=== PATIENT | female | born 1970 | race Caucasian/White ===

== ENCOUNTER 2023-05-25 09:44 | Outpatient (AMB) | payer MEDICAID, SELFPAY ==
--- NOTE | 2023-05-25 09:46 | A.OFFVIS_ITS ---
Intake Vital Signs 3 05/25/23 09:58 Height 5 ft 1 in Weight 193 lb BMI 36.5 BP 145/65 H Blood Pressure Location Lt brachial Position Sitting Pulse 86 Intake Visit Reasons: cutaneous abscess back excluding buttocks Intake Note: Patient is seen in office for evaluation and treatment of an abscess of the back. Patient c/o: had ump since 03/2023, however on 05/17/23 went to urgent care due to pain and was I&D started antbx at the time, had to go back to urgent care and was placed on a stronger antibiotics, currently is still discharge, redness, swelling, pain Coagulating Bath Mixer Required: Yes Coagulating Bath Mixer Language: Tank Car Loader Name: Rocio COBURN Information Interpreted: non-clinical & clinical Patcher Wood Welder: Patcher Wood Welder Present Accompanied by: Self / Same As Patient Allergies No Known Allergies Allergy (Verified 05/25/23 09:55) HPI HPI Comments 2 History of Present Illness0 Details 52-year-old female patient presenting wi th a one-month history of a sebaceous cyst abscess of the midback. Initially the cyst was asymptomatic however over the last week she noted increased pain and swelling. She subsequently was evaluated in the walk-in center and underwent incision and drainage. She continues to report pain and drainage from the site and was placed on a stronger antibiotic. She is currently on Bactrim ds b.i.d.. She continues to report pain and swelling from the site. She denies fever or chills. [facility] Surgical History History of left breast biopsy History of tubal ligation Family History Mother Ovarian cancer, Onset Age: 56 Sister Ovarian cancer, Onset Age: 48 Social History Unable to assess alcohol history related to: Unable to respond Patient Tobacco Use Status: Never used Tobacco Review of Systems Const All systems reviewed & are unremarkable except as noted in HPI and below Denies chills, Denies fever(s), Denies headache(s), Denies poor appetite and Denies weakness ENT Denies headache(s) Card Denies chest pain, Denies irregular heart rhythm, Denies palpitations and Denies dyspnea Resp Denies cough, Denies excessive phlegm production and Denies dyspnea GI Denies abdominal pain, Denies bloating, Denies change in bowel habits, Denies constipation, Denies heartburn, Denies diarrhea, Denies nausea and Denies vomiting Denies urinary frequency Musc Denies back pain, Denies muscle weakness and Denies numbness Skin/Breast Reports as per HPI, Denies changing lesions and Denies unusual bruising Neuro Denies headache(s), Denies numbness, Denies paresthesias and Denies weakness Psych Denies anxiety and Denies depression Endo Denies palpitations Torey/Lymph Denies lymphadenopathy Physical Exam Const General: cooperative and no acute distress Nutritional Appearance: well nourished Orientation/consciousness: patient oriented x3 Limitations: no limitations HEENT Head: Yes normocephalic and Yes atraumatic Ears: hearing grossly normal bilaterally Resp Effort & Inspection: normal respiratory effort, no audible wheezes, no cough and no respiratory distress Cardio Jugular venous distension: no JVD GI Inspection: Yes normal to inspection Back/Spine/Pelvis Other: 2 cm area of erythema with an incision and drainage site at the upper portion of the wound and a spontaneous draining punctum below this. Light pressure produces a steady stream of purulence discharge. Site may benefit from incision and drainage. Back/spine/pelvis image: 2 1. Abscess site midback Skin Other: Warm, dry, no rash Neuro General: patient oriented x3 Extrem General: Yes no clubbing, cyanosis or edema Office Procedures I&D Drain Details: Preoperative diagnosis: Sebaceous cyst abscess midback Postoperative diagnosis: Same Procedure: Incision and drainage sebaceous cyst abscess midback Surgeon: Seven Mathur MD Aircraft Seat Upholsterer: None Anesthesia: Lidocaine 1% with epinephrine Indications for procedure: Persistent draining cyst of mid back with abscess Operative findings: Sebaceous material and abscess fluid removed Specimen: None Estimated blood loss: None Complications: None Procedure details: Patient was placed in a prone position. The site of surgery was confirmed by the patient in the mid back. After assuring informed consent, the skin was prepped with Betadine and draped in a sterile fashion. Local anesthesia was infiltrated around the cyst. An 11 blade was used to incise the abscess. A small abscess cavity was entered. Sebaceous material was able to be removed using a hemostat. Wounds were then irrigated with saline solution. Wounds were then packed with quarter-inch Nu Gauze. Dry sterile dressings were applied. The patient tolerated the procedure well. She was discharged to home in stable condition. 45496-Dwludnic of Skin Abscess, simple All charges added?: Procedure code (CPT) selection complete Assessment & Plan Assessment & Plan (1) Sebaceous cyst: Code(s): L72.3 - Sebaceous cyst (2) Abscess: Code(s): L02.91 - Cutaneous abscess, unspecified Plan 52-year-old female patient presenting with a painful and draining sebaceous cyst of the midback previously incised and drained but continuing to cause pain. She was evaluated today and found to have residual abscess cavity. Incision and drainage was performed today. She tolerated the procedure well and was instructed on local wound care. She will return in 1 week for wound check. Coding Level of Care Code New Pt Level 3 (09491) Diagnoses Sebaceous cyst L72.3 Abscess L02.91 CPT Codes I&D Drain - Drain 1: 87057-Izoqblic of Skin Abscess, simple ([id number])
[2023-05-25 09:58] VITALS: BP 145/65; PULSE 86; BMI 36.5
== END 2023-05-25 10:13 | disposition home or self-care (01) ==
PROVIDERS: PCP Internal Medicine Geriatric Medicine; Referring Provider Internal Medicine Geriatric Medicine; Visit Provider Surgery
DX: L72.3 Sebaceous cyst (principal); L02.818 Cutaneous abscess of other sites
CPT/HCPCS: 10060; 99203

== ENCOUNTER → 2023-05-25 09:44 | Outpatient (BNVA) | payer MEDICAID, SELFPAY | PROVIDERS: PCP Internal Medicine Geriatric Medicine; Referring Provider Internal Medicine Geriatric Medicine; Visit Provider Surgery | DX: L02.212 Cutaneous abscess of back [any part, except buttock and flank] (principal); L72.3 Sebaceous cyst | CPT/HCPCS: 10060; 99202 ==

== ENCOUNTER 2023-06-01 11:14 | Outpatient (AMB) | payer MEDICAID, SELFPAY ==
--- NOTE | 2023-06-01 11:16 | MHC.OFFVIS ---
Intake Vital Signs 06/01/23 11:21 Height 5 ft 1 in Weight 194 lb 7.163 oz BMI 36.7 BP 130/70 Blood Pressure Location Lt brachial Position Sitting Intake Visit Reasons: post I&D of back abscess Intake Note: Patient is seen in office for one week follow up visit, post I&D of mid back abscess. Pt c/o: has been draining, every day is less, only painful at the site, slowly healing Pediatric Oncology Nurse Required: Yes Pediatric Oncology Nurse Language: Asset Protection Detective Name: Rocio RMA Information Interpreted: non-clinical & clinical Can Operator: Can Operator Present Accompanied by: Self / Same As Patient Allergies No Known Allergies Allergy (Verified 06/01/23 11:20) Medication List - Last Reconciled 06/01/23 by Seven Mathur MD No Known Home Meds HPI HPI Comments History of Present Illness Details Patient returns 1 week following incision and drainage of an abscess of the midback. She tolerated the procedure well and reports decreased pain and redness in the back. She continues to apply a dressing on a daily basis and notes a small amount of discharge, mainly bloody. She denies any fever or chills. [facility] Surgical History History of left breast biopsy History of tubal ligation Family History Mother Ovarian cancer, Onset Age: 56 Sister Ovarian cancer, Onset Age: 48 Social History Unable to assess alcohol history related to: Unable to respond Patient Tobacco Use Status: Never used Tobacco Physical Exam Vital Signs: Last Vital Signs BP 130/70 06/01/23 11:21 BMI result Body Mass Index 36.7 Const General: no acute distress Nutritional Appearance: well nourished Orientation/consciousness: patient oriented x3 Resp Effort & Inspection: normal respiratory effort Back/Spine/Pelvis Other: Incision and drainage site in the mid back is clean but open with a small amount of sebaceous material noted. Wounds were covered with dry sterile dressings. Neuro General: patient oriented x3 Assessment & Plan Assessment & Plan (1) Abscess: Code(s): L02.91 - Cutaneous abscess, unspecified (2) Sebaceous cyst: Code(s): L72.3 - Sebaceous cyst Plan Resolving sebaceous cyst abscess of the back which is much improved following incision and drainage. I recommended continuing daily dressing changes and follow-up in 1 month to decide if further excision is required. Coding Level of Care Code Global (92119) Diagnoses Abscess L02.91 Sebaceous cyst L72.3
[2023-06-01 11:21] VITALS: BP 130/70; BMI 36.7
== END 2023-06-01 11:26 | disposition home or self-care (01) ==
PROVIDERS: PCP Internal Medicine Geriatric Medicine; Visit Provider Surgery
DX: L02.91 Cutaneous abscess, unspecified (principal); L72.3 Sebaceous cyst
CPT/HCPCS: 99024

== ENCOUNTER → 2023-06-01 11:14 | Outpatient (BNVA) | payer MEDICAID, SELFPAY | PROVIDERS: PCP Internal Medicine Geriatric Medicine; Visit Provider Surgery | DX: Z48.817 Encounter for surgical aftercare following surgery on the skin and subcutaneous tissue (principal); L72.3 Sebaceous cyst | CPT/HCPCS: 99212 ==

== ENCOUNTER 2023-06-08 18:25 | Outpatient (REF) | payer MEDICAID, SELFPAY ==
[2023-06-10 14:33] LABS: C. trachomatis RNA TMA NOT DETECTED (NOT DETECTED); Candida glabrata RNA NOT DETECTED (NOT DETECTED); Candida species RNA NOT DETECTED (NOT DETECTED); N. gonorrhoeae RNA TMA NOT DETECTED (NOT DETECTED); Trichomonas vaginalis RNA NOT DETECTED (NOT DETECTED)
== END 2023-06-08 18:26 | disposition home or self-care (01) ==
LOC: HO.HHCLNP 18:25
PROVIDERS: Visit Provider Internal Medicine
DX: R39.9 Unspecified symptoms and signs involving the genitourinary system (principal)
CPT/HCPCS: 36415; 81513; 87086; 87481; 87491; 87591; 87661

== ENCOUNTER 2023-07-03 10:04 | Outpatient (AMB) | payer MEDICAID, SELFPAY ==
[2023-07-03 10:07] VITALS: BP 142/74; PULSE 73; BMI 36.8
--- NOTE | 2023-07-03 10:07 | MHC.OFFVIS ---
Intake Vital Signs 07/03/23 10:07 Height 5 ft 1 in Weight 195 lb BMI 36.8 BP 142/74 H Blood Pressure Location Rt brachial Position Sitting Pulse 73 Intake Visit Reasons: 1 mth follow up post I&D of back abscess Intake Note: This patient presents for a one month follow-up status post I&D back abscess. Patient c/o; reports has not been draining for 1 week, reports open wound. Appeals Court Associate Justice Required: Yes Appeals Court Associate Justice Language: Optical Glass Silverer Name: Sarah Information Interpreted: non-clinical & clinical Accompanied by: Self / Same As Patient Allergies No Known Allergies Allergy (Verified 07/03/23 10:13) Medication List - Last Reconciled 07/03/23 by Seven Mathur MD No Known Home Meds HPI HPI Comments History of Present Illness Details Patient returns 1 month following incision and drainage of an abscess of the midback. She denies any fever or chills. She feels much improved and denies any further drainage the wound. [facility] Surgical History History of left breast biopsy History of tubal ligation Family History Mother Ovarian cancer, Onset Age: 56 Sister Ovarian cancer, Onset Age: 48 Social History Unable to assess alcohol history related to: Unable to respond Patient Tobacco Use Status: Never used Tobacco Review of Systems Const All systems reviewed & are unremarkable except as noted in HPI and below Denies chills, Denies fever(s), Denies headache(s), Denies poor appetite and Denies weakness ENT Denies headache(s) Card Denies chest pain, Denies irregular heart rhythm, Denies palpitations and Denies dyspnea Resp Denies cough, Denies excessive phlegm production and Denies dyspnea GI Denies abdominal pain, Denies bloating, Denies change in bowel habits, Denies constipation, Denies heartburn, Denies diarrhea, Denies nausea and Denies vomiting Denies urinary frequency Musc Denies back pain, Denies muscle weakness and Denies numbness Skin/Breast Reports as per HPI, Denies changing lesions and Denies unusual bruising Neuro Denies headache(s), Denies numbness, Denies paresthesias and Denies weakness Psych Denies anxiety and Denies depression Endo Denies palpitations Torey/Lymph Denies lymphadenopathy Physical Exam Const General: no acute distress Nutritional Appearance: well nourished Orientation/consciousness: patient oriented x3 Resp Effort & Inspection: normal respiratory effort Back/Spine/Pelvis Other: wounds are clean, dry, with a slight separation in the skin but no evidence of ongoing infection. Neuro General: patient oriented x3 Assessment & Plan Assessment & Plan (1) Sebaceous cyst: Code(s): L72.3 - Sebaceous cyst (2) Abscess: Code(s): L02.91 - Cutaneous abscess, unspecified Plan The sebaceous cyst abscess is now resolved with no further infection noted. She should follow up as needed. Coding Level of Care Code Est Pt Level 3 (82243) Diagnoses Sebaceous cyst L72.3 Abscess L02.91
== END 2023-07-03 10:15 | disposition home or self-care (01) ==
PROVIDERS: PCP Internal Medicine Geriatric Medicine; Visit Provider Surgery
DX: L72.3 Sebaceous cyst (principal); L02.91 Cutaneous abscess, unspecified
CPT/HCPCS: 99213

== ENCOUNTER → 2023-07-03 10:04 | Outpatient (BNVA) | payer MEDICAID, SELFPAY | PROVIDERS: PCP Internal Medicine Geriatric Medicine; Visit Provider Surgery | DX: Z09 Encounter for follow-up examination after completed treatment for conditions other than malignant neoplasm (principal); Z87.2 Personal history of diseases of the skin and subcutaneous tissue | CPT/HCPCS: 99212 ==

== ENCOUNTER 2023-10-01 09:32 | Outpatient (REF) | payer MEDICAID, SELFPAY ==
[2023-10-01 11:40] LABS: Hematocrit 43.3 % (37.0-47.0); Hemoglobin 14.1 g/dl (12.0-16.0); Mean Corpuscular HGB Conc 32.6 g/dl (31.0-35.0); Mean Platelet Volume 9.2 fL (9.4-12.3); Platelet Count 300 X10*3/uL (160-400); Red Blood Count 5.22 X10*6/uL (4.20-5.50); Red Cell Distribution Width 12.9 % (11.0-16.0); White Blood Count 6.1 X10*3/uL (4.8-10.8)
[2023-10-01 11:47] LABS: Estimated Average Glucose 123 mg/dL; Hemoglobin A1c % 5.9 % (<6.0)
[2023-10-01 12:03] LABS: Alanine Aminotransferase 32 U/L (0-31); Albumin Level 4.1 g/dL (3.5-5.0); Alkaline Phosphatase 77 U/L (39-117); Anion Gap 11 (12-20); Aspartate Amino Transferase 22 U/L (5-31); Bilirubin Total 0.7 mg/dL (0.0-1.0); Blood Urea Nitrogen 13 mg/dL (9-16); Calcium 9.8 mg/dL (8.4-10.2); Carbon Dioxide 29 mmol/L (22-29); Chloride 105 mmol/L (96-108); Cholesterol 188 mg/dL (<200); Estimated Glomerular Filt Rate > 60; Glucose Random 105 mg/dL (60-115); HDL Cholesterol 63 mg/dL (>40); LDL Cholesterol Calculated 111 mg/dL (<100); Potassium 4.4 mmol/L (3.3-5.1); Sodium 141 mmol/L (135-145); Total Protein 7.6 g/dL (6.5-8.0); Triglycerides 74 mg/dL (<150)
[2023-10-01 12:18] LABS: TSH reflex Free T4 1.08 uIU/mL (0.32-4.0); Vitamin D 25-OH Total 38.8 ng/mL (>30)
[2023-10-01 12:28] LABS: Folate 9.7 ng/mL (> or = 4.0); Vitamin B12 694 pg/mL (200-900)
[2023-10-02 09:35] LABS: HBS Num1 13.19 mIU/mL (0-7.99); HBc Num1 0.09 S/CO (0.00-0.79); HBsAGNum1 0.24 S/CO (0.00-0.99); HIV AB/AG Nonreactive (Nonreactive); HIV Num 1 0.07 S/CO (0.00-0.99); Hepatitis B Core Antibody Nonreactive (Nonreactive); Hepatitis B Surface Antigen Negative (Negative); ~HepC Num1 0.07 S/CO (0.00-0.79); ~Hepatitis B Surface Antibody REACTIVE (Nonreactive); ~Hepatitis C Antibody Nonreactive (Nonreactive)
[2023-10-02 09:44] LABS: Syphilis Screen Nonreactive (Nonreactive)
== END 2023-10-01 09:33 | disposition home or self-care (01) ==
LOC: HO.HHCL 09:32
PROVIDERS: Visit Provider Student in an Organized Health Care Education/Training Program
DX: Z00.00 Encounter for general adult medical examination without abnormal findings (principal)
CPT/HCPCS: 36415; 80053; 80061; 82306; 82607; 82746; 83036; 84443; 85027; 86704; 86706; 86780; 86803; 87340; 87389

== ENCOUNTER 2023-11-13 13:03 | Outpatient (AMB) | payer MEDICAID, SELFPAY ==
[2023-11-13 13:05] VITALS: BP 135/75; PULSE 78; BMI 37.2
--- NOTE | 2023-11-13 13:05 | MHC.OFFVIS ---
Vital Signs 11/13/23 13:05 Height 5 ft 1 in Weight 196 lb 10.437 oz BMI 37.2 BP 135/75 Blood Pressure Location Lt brachial Position Sitting Pulse 78 Intake Visit Reasons: Colonoscopy Screening Intake Note: Patient in office today as a new patient for a colonoscopy screening. CC: Patient denies having any GI symptoms. Patient s/p hysterectomy last September. Regional Liaison Required: Yes Regional Liaison Name: daughter Accompanied by: Daughter Allergies No Known Allergies Allergy (Verified 11/13/23 13:05) HPI HPI Colonoscopy Screening: Details: 52-year-old female here for preprocedural meeting to discuss a screening colonoscopy. She is referred by [facility]. PMX Obesity -BMI 37 Bladder prolapse Uterine myoma History of sebaceous cyst * SURGICAL HISTORY Left breast biopsy Tubal ligation Hysterectomy * ALLERGIES : NKDA * [employer] LABS: Laboratory Tests 10/01/23 09:34 WBC 6.1 Hgb 14.1 Hct 43.3 Plt Count 300 Estimated GFR > 60 Total Bilirubin 0.7 AST 22 ALT 32 H Alkaline Phosphatase 77 TSH 1.08 TODAY'S VISIT [place] #dtr translates per pt request. The pt and her family says She does not know why she is here. She denies any bowel or upper GI problems. She denies any cardiac or respiratory problems. Initially she denies any trouble with anesthesia or sedation; but she was kept overnight recently after her hyst r/t somnolence. No ID problems. There is no known FHX of crc or polyps. [facility] Surgical History History of prolapse of bladder H/O total hysterectomy History of left breast biopsy History of tubal ligation Family History Mother Ovarian cancer, Onset Age: 56 Sister Ovarian cancer, Onset Age: 48 Social History Alcohol intake: former Patient Tobacco Use Status: Never used Tobacco Review of Systems Const Denies fatigue, Denies fever(s), Denies night sweats, Denies poor appetite and Denies weight loss ENT Reports Normal hearing present, Denies dental pain, Denies dysphagia, Denies hearing loss, Denies mouth pain, Denies odynophagia, Denies throat swelling, Denies tongue swelling and Reports other (Dentition adequate) Card Reports no additional complaints Resp Reports no additional complaints GI Details: Denies abdominal pain, Denies melena, Denies bloating, Denies hematochezia, Denies constipation, Denies GI cramping, Denies dysphagia, Denies excessive flatus, Denies early satiety, Denies heartburn, Denies diarrhea, Denies nausea, Denies odynophagia, Denies vomiting and Denies hematemesis Skin/Breast Denies pruritus, Denies lesions, Denies rash and Denies jaundice Neuro Reports Normal hearing present and Denies Abnormal speech present Endo Denies fatigue Aller/Immun Denies throat swelling and Denies tongue swelling Physical Exam Vital Signs: Last Vital Signs Pulse 78 11/13/23 13:05 BP 135/75 11/13/23 13:05 BMI result Body Mass Index 37.2 Const General: cooperative, no acute distress, well developed and well groomed Nutritional Appearance: well nourished and obese Orientation/consciousness: oriented to person, oriented to place and oriented to time Limitations: language barrier HEENT Head: Yes normocephalic and Yes atraumatic Eyes General: appearance normal, both eyes and all related structures Pupils: Equal, round and reactive pupils present Neck Neck: Yes normal visual inspection and Yes no lymphadenopathy Thyroid: Thyroid normal Resp Effort & Inspection: normal respiratory effort and able to speak in complete sentences Auscultation: clear to auscultation bilaterally Cardio Rate: regular rate Rhythm: regular rhythm Heart sounds: Normal, physiologic split S2 sound present Peripheral pulses: radial pulses present and posterior tibial pulses present GI Inspection: No distended, No Abdominal panniculus present, Yes obesity and Yes scar Palpation (GI): Soft to palpation, nontender, no guarding, not rigid and No hepatosplenomegaly present Percussion: Yes normal to percussion Auscultation: normal bowel sounds Rectal Exam - Female: deferred Abdomen image: 1. well healing recent surgical scars 2. 3. Skin General skin exam: no rashes or lesions noted, turgor normal, skin not dry, no jaundice, No spider nevi and no striae Rashes: no rashes Nails: normal Neuro General: oriented to person, oriented to place and oriented to time Cranial nerves: Yes Equal, round and reactive pupils present and Yes Normal hearing present Speech: No Abnormal speech present Extrem General: Yes normal to inspection, Yes no pedal edema, No clubbing, No cyanosis and Yes edema (very mild pitting on ankle left only) Psych Appearance: grossly normal and well kempt Mental Status: mental status grossly normal Speech and movement: Normal speech and movement present Affect: normal affect Attitude: cooperative Thought process: Normal thought process present and not confabulating Thought content: Normal thought content present Insight: Limited insight present (Psych) Judgement: Limited judgement present (Psych) Assessment & Plan Assessment & Plan (1) Pre-op examination: Code(s): Z01.818 - Encounter for other preprocedural examination Category: Medical Plan [place] #dtr translates per pt request. The pt and her family says She does not know why she is here. She denies any bowel or upper GI problems. She denies any cardiac or respiratory problems. Initially she denies any trouble with anesthesia or sedation; but she was kept overnight recently after her hyst r/t somnolence. No ID problems. There is no known FHX of crc or polyps. Orders: Orders Colonoscopy - GI Use Only 11/13/23 Z01.818 - Encounter for other preprocedural examination Medications: New bisacodyl (Dulcolax (bisacodyl)) 10 mg (2 x 5 mg) PO BEDTIME 4 tabs 0RF 2 days peg 3350-electrolytes 236-22.74-6.74 -5.86 gram (Golytely) until fecal effluent is clear; do not exceed a total volume of 2,000 mL 240 mL PO Q10M 4,000 mL 0RF 1 day Z12.11 - Encounter for screening for malignant neoplasm of colon Coding Level of Care Code New Pt Level 3 (46762) Diagnoses Pre-op examination Z01.818
== END 2023-11-13 13:50 | disposition home or self-care (01) ==
PROVIDERS: PCP Internal Medicine Geriatric Medicine; Visit Provider Nurse Practitioner
DX: Z01.818 Encounter for other preprocedural examination (principal)
CPT/HCPCS: 99203

== ENCOUNTER → 2023-11-13 13:03 | Outpatient (BNVA) | payer MEDICAID, SELFPAY | PROVIDERS: PCP Internal Medicine Geriatric Medicine; Visit Provider Nurse Practitioner | DX: Z01.818 Encounter for other preprocedural examination (principal) | CPT/HCPCS: 99202; 99212 ==

== ENCOUNTER → 2024-02-04 10:24 | Outpatient (BNVA) | payer MEDICAID, SELFPAY | PROVIDERS: PCP Internal Medicine Geriatric Medicine; Visit Provider Surgery | DX: T81.89XD Other complications of procedures, not elsewhere classified, subsequent encounter (principal); X58.XXXD Exposure to other specified factors, subsequent encounter; Z98.890 Other specified postprocedural states | CPT/HCPCS: 99211 ==

== ENCOUNTER 2024-02-21 09:48 | Outpatient (REF) | payer MEDICAID, SELFPAY | END 2024-02-21 09:49 | disposition home or self-care (01) | LOC: HO.LNP 09:48 | PROVIDERS: PCP Internal Medicine Geriatric Medicine; Visit Provider Surgery | DX: L72.0 Epidermal cyst (principal) | CPT/HCPCS: 11401; 88304; 99212 ==

== ENCOUNTER 2024-02-21 09:48 | Outpatient (AMB) | payer MEDICAID, SELFPAY ==
--- NOTE | 2024-02-21 09:53 | A.OFFVIS_ITS ---
Vital Signs 3 02/21/24 10:02 Height 5 ft 1 in Weight 196 lb 3.382 oz BMI 37.1 Pulse 76 Intake Visit Reasons: possible re-excision open I&D site (07/03/23) Intake Note: Patient is seen in office for possible re-excision of open I&D site of mid back abscess. Pt c/o: area is open since I&D and would like to have it surgically closed I& Geriatric Physician Required: No Accompanied by: Self / Same As Patient Allergies No Known Allergies Allergy (Verified 11/13/23 13:05) Medication List - Last Reconciled 02/21/24 by Seven Mathur MD bisacodyl (Dulcolax (bisacodyl)) 10 mg (2 x 5 mg) PO BEDTIME 2 days ibuprofen 800 mg PO BEDTIME PRN peg 3350-electrolytes 236-22.74-6.74 -5.86 gram (Golytely) 240 mL PO Q10M 1 day HPI Comments Details: 53-year-old female patient returns for re-evaluation of a sebaceous cyst of the midback. This was previously incised and drained on 05/25/2023. She denies any pain, redness or discharge from the site but does no a residual depression at the site of the previous cyst. She is requesting excision of this residual cyst to prevent further infections. [facility] Surgical History History of prolapse of bladder H/O total hysterectomy History of left breast biopsy History of tubal ligation Family History Mother Ovarian cancer, Onset Age: 56 Sister Ovarian cancer, Onset Age: 48 Social History Alcohol intake: former Patient Tobacco Use Status: Never used Tobacco Review of Systems Const All systems reviewed & are unremarkable except as noted in HPI and below Denies chills, Denies fever(s), Denies headache(s), Denies poor appetite and Denies weakness ENT Denies headache(s) Card Denies chest pain, Denies irregular heart rhythm, Denies palpitations and Denies dyspnea Resp Denies cough, Denies excessive phlegm production and Denies dyspnea GI Denies abdominal pain, Denies bloating, Denies change in bowel habits, Denies constipation, Denies heartburn, Denies diarrhea, Denies nausea and Denies vomiting Denies urinary frequency Musc Denies back pain, Denies muscle weakness and Denies numbness Skin/Breast Reports as per HPI, Denies changing lesions and Denies unusual bruising Neuro Denies headache(s), Denies numbness, Denies paresthesias and Denies weakness Psych Denies anxiety and Denies depression Endo Denies palpitations Torey/Lymph Denies lymphadenopathy Physical Exam Vital Signs: Last Vital Signs Pulse 76 02/21/24 10:02 BMI result Body Mass Index 37.1 Const General: no acute distress Nutritional Appearance: well nourished Orientation/consciousness: patient oriented x3 Resp Effort & Inspection: normal respiratory effort, no audible wheezes, no cough and no respiratory distress Back/Spine/Pelvis Back/spine/pelvis image: 2 1. 1 cm round cavity at the site of previous sebaceous cyst. The site is nontender to palpation with no evidence of fluctuance or other inflammatory changes. Cavities a proximally 1 cm deep Skin Other: Skin lesion as noted above Neuro General: patient oriented x3 Extrem Other: No edema Office Procedures Excision Details: Preoperative diagnosis: Sebaceous cyst midback Postoperative diagnosis: Same Procedure: Excision of sebaceous cyst midback Surgeon: Seven Mathur MD [employer] Dean: None Anesthesia: Lidocaine 1% with epinephrine Indications for procedure: Previous abscess midback with residual sebaceous cyst Operative findings: 1 cm sebaceous cyst Specimen: Sebaceous cyst midback Estimated blood loss: Less than 2 mL Complications: None Procedure details: The patient confirmed the site of procedure in the midback. After assuring informed consent, the patient was placed in a prone position. The skin was prepped with Betadine and draped in a sterile fashion. Local anesthesia was then infiltrated circumferentially around the cyst. Elliptical incision oriented longitudinally was then created with a 15 blade. This was carried out through subcutaneous tissue and around the cyst wall. The lesion was excised from the subcutaneous tissue and passed off the table. This was sent to pathology for further examination. After assuring adequate hemostasis the skin was closed using interrupted 3-0 nylon sutures. Sterile dressings consisting of 2 x 2 gauze and Tegaderm were then applied. The patient tolerated the procedure well and was discharged to home in stable condition. 57272-ijdsd/arms/legs 0.6-1cm Procedure code (CPT) selection complete Assessment & Plan Assessment & Plan (1) Sebaceous cyst: Code(s): L72.3 - Sebaceous cyst Category: Medical Plan Patient underwent excision of sebaceous cyst today under local anesthesia. She tolerated the procedure well and will return in approximately 1 week for suture removal. Orders: Orders 2 Surgical Today L72.3 - Sebaceous cyst Coding Level of Care Code Est Pt Level 4 (50741) Diagnoses Sebaceous cyst L72.3 CPT Codes Trunk/Arms/Legs - CPT: 75107-thlse/arms/legs 0.6-1cm ([id number])
[2024-02-21 10:02] VITALS: PULSE 76; BMI 37.1
== END 2024-02-21 10:19 | disposition home or self-care (01) ==
PROVIDERS: PCP Internal Medicine Geriatric Medicine; Visit Provider Surgery
DX: L72.3 Sebaceous cyst (principal)
CPT/HCPCS: 11401; 99214

== ENCOUNTER 2024-02-28 10:14 | Outpatient (AMB) | payer MEDICAID, SELFPAY ==
--- NOTE | 2024-02-28 10:15 | A.OFFVIS_ITS ---
Vital Signs 3 02/28/24 10:23 Height 5 ft 1 in Weight 196 lb 10.437 oz BMI 37.2 Pulse 72 Intake Visit Reasons: post exc betina cyst of the mid back (off proc) Intake Note: Patient is seen in office for suture removal post excision of mid back abscess. Pt c/o: denies any concerns, sutures removed at visit (off proc) Accompanied by: Self / Same As Patient Allergies No Known Allergies Allergy (Verified 02/28/24 10:24) HPI Comments Details: 53-year-old female patient returning 1 week following excision of an epidermal inclusion cyst of the back. She reports some itchiness but otherwise feels well. She denies any problems after the procedure. She returns today for suture removal. [facility] Surgical History History of prolapse of bladder H/O total hysterectomy History of left breast biopsy History of tubal ligation Family History Mother Ovarian cancer, Onset Age: 56 Sister Ovarian cancer, Onset Age: 48 Social History Alcohol intake: former Patient Tobacco Use Status: Never used Tobacco Physical Exam Vital Signs: Last Vital Signs Pulse 72 02/28/24 10:23 BMI result Body Mass Index 37.2 Const General: no acute distress Nutritional Appearance: well nourished Resp Effort & Inspection: normal respiratory effort Back/Spine/Pelvis Back/spine/pelvis image: 2 1. Midline incision in the mid back is clean, dry, and intact without redness or discharge. Sutures removed and Steri-Strips applied. Assessment & Plan Assessment & Plan (1) Sebaceous cyst: Code(s): L72.3 - Sebaceous cyst Category: Medical Plan 53-year-old female patient with a previous history of an infected sebaceous cyst of the midback now status post incision. She tolerated the procedure well the wounds are healing nicely. She should follow up as needed. Coding Level of Care Code Global (08148) Diagnoses Sebaceous cyst L72.3
[2024-02-28 10:23] VITALS: PULSE 72; BMI 37.2
== END 2024-02-28 10:41 | disposition home or self-care (01) ==
PROVIDERS: PCP Internal Medicine Geriatric Medicine; Visit Provider Surgery
DX: L72.3 Sebaceous cyst (principal)
CPT/HCPCS: 99024

== ENCOUNTER → 2024-02-28 10:14 | Outpatient (BNVA) | payer MEDICAID, SELFPAY | PROVIDERS: PCP Internal Medicine Geriatric Medicine; Visit Provider Surgery | DX: Z09 Encounter for follow-up examination after completed treatment for conditions other than malignant neoplasm (principal); Z87.2 Personal history of diseases of the skin and subcutaneous tissue | CPT/HCPCS: 99212 ==

== ENCOUNTER 2024-04-07 08:44 | Outpatient (REF) | payer MEDICAID, SELFPAY ==
[2024-04-07 12:06] LABS: Estimated Average Glucose 131 mg/dL; Hemoglobin A1C 150.4638 umol/L; Hemoglobin A1c % 6.2 % (<6.0); Total Hemoglobin (HGBA1C) 3417.0803 umol/L
[2024-04-07 12:16] LABS: Creatinine Urine 231.44 mg/dL; Microalbum/Creatinine Ratio Ur 3.4 ug/mg cr (<30)
[2024-04-07 12:17] LABS: Alanine Aminotransferase 39 U/L (0-31); Albumin Level 3.8 g/dL (3.5-5.0); Alkaline Phosphatase 86 U/L (39-117); Anion Gap 12 (12-20); Aspartate Amino Transferase 31 U/L (5-31); Bilirubin Total 0.7 mg/dL (0.0-1.0); Blood Urea Nitrogen 14 mg/dL (9-16); Calcium 9.3 mg/dL (8.4-10.2); Carbon Dioxide 26 mmol/L (22-29); Chloride 103 mmol/L (96-108); Cholesterol 173 mg/dL (<200); Estimated Glomerular Filt Rate > 60; Glucose Random 106 mg/dL (60-115); HDL Cholesterol 49 mg/dL (>40); LDL Cholesterol Calculated 106 mg/dL (<100); Potassium 3.7 mmol/L (3.3-5.1); Sodium 137 mmol/L (135-145); Total Protein 6.8 g/dL (6.5-8.0); Triglycerides 90 mg/dL (<150)
[2024-04-07 14:21] LABS: CT PCR NOT DETECTED (Not Detect.); NG PCR NOT DETECTED (Not Detect.)
== END 2024-04-07 08:45 | disposition home or self-care (01) ==
LOC: HO.HHCL 08:44
PROVIDERS: Visit Provider Student in an Organized Health Care Education/Training Program
DX: Z00.00 Encounter for general adult medical examination without abnormal findings (principal); R73.03 Prediabetes
CPT/HCPCS: 80053; 80061; 82043; 82570; 83036; 87491; 87591

== ENCOUNTER 2024-04-17 06:45 | Day surgery (SDC) | payer MEDICAID, SELFPAY ==
[2024-04-15 09:37] VITALS: BMI 37.0
--- NOTE | 2024-04-16 09:23 | P.CONAN_ITS ---
Documented by User: Federica King NP 04/16/24 09:24 HPI - Anesthesia Eval Consult details Narrative: 53yo F for Colonoscopy PMFSH Active Problems Active Problems: All Active Problems Pre-op examination (Acute) Uterine myoma (Acute) Bladder prolapse, female, acquired (Acute) Obesity (BMI 30-39.9) (Acute) Abscess (Acute) Past Medical History Medical History Hypertension Family History Family History Mother Ovarian cancer, Onset Age: 56 Sister Ovarian cancer, Onset Age: 48 Surgical History Surgical History History of prolapse of bladder H/O total hysterectomy History of left breast biopsy History of tubal ligation Social History Social History Are you a primary respiratory care instructor to a significant other at home: No Do you presently have visiting nurse or other home services: No Alcohol intake: former Patient Tobacco Use Status: Never used Tobacco Have you been hit, kicked, punched, or otherwise hurt by someone within the past year? If so, by whom?: No Are you DNR?: No Advance Directives: No Advance Directives Information Provided: Yes Recently lost weight without trying: No Nutrition Risks: No Nutritional Risk Meds Allergies Allergy/AdvReac Type Severity Reaction Status Date / Time No Known Allergies Allergy Verified 04/17/24 07:15 Home Medications ?Medication ?Instructions ?Recorded ?Confirmed ?Last Taken ?Type estradiol 0.05 mg/24 hr semiweekly 1 patch topical 2XW 04/17/24 04/17/24 Unknown History transdermal patch (Minivelle) losartan 25 mg tablet 25 mg PO DAILY 04/17/24 04/17/24 Unknown History Exam Height,Weight and Vital Signs: Height 5 ft 1 in Weight 88.904 kg Assessment and Plan Assessment Anesthesia Assessment: Chart Reviewed Documented by User: Yue Villa MD 04/17/24 07:48 PMFSH Past Medical History Medical History Hypertension Family History Family History Mother Ovarian cancer, Onset Age: 56 Sister Ovarian cancer, Onset Age: 48 Family history of problems with anesthesia: No Surgical History Surgical History History of prolapse of bladder H/O total hysterectomy History of left breast biopsy History of tubal ligation History of Problems with Anesthesia: No Social History Social History Are you a primary respiratory care instructor to a significant other at home: No Do you presently have visiting nurse or other home services: No Alcohol intake: former Patient Tobacco Use Status: Never used Tobacco Have you been hit, kicked, punched, or otherwise hurt by someone within the past year? If so, by whom?: No Are you DNR?: No Advance Directives: No Advance Directives Information Provided: Yes Recently lost weight without trying: No Nutrition Risks: No Nutritional Risk Meds Allergies Allergy/AdvReac Type Severity Reaction Status Date / Time No Known Allergies Allergy Verified 04/17/24 07:15 Home Medications ?Medication ?Instructions ?Recorded ?Confirmed ?Last Taken ?Type estradiol 0.05 mg/24 hr semiweekly 1 patch topical 2XW 04/17/24 04/17/24 Unknown History transdermal patch (Minivelle) losartan 25 mg tablet 25 mg PO DAILY 04/17/24 04/17/24 Unknown History Exam Airway Mallampati Class: II TM Dist: >3cm Neck ROM: Full Heart: rrr Lungs: cta Assessment and Plan Assessment Anesthesia Assessment: Anesthesia Plan Discussed Final Anesthetic Review Family History of Problems with Anesthesia: No History of Problems with Anesthesia: No NPO: Yes ASA Class: II Final Preanesthetic Review: No Changes in Pt Med Stat, Meds/Allgs Chart Reviewed, Consent Obtained/Reviewed and Anes Risks/Benef Reviewed Patient Risk: Low Procedure Risk: Low Anesthetic Plan Anesthetic Plan: MAC: Disposition: Standard PACU
[2024-04-17 06:58] VITALS: BMI 37.2
[2024-04-17] MEDS: Lactated Ringers 1,000 ML 100 ML IVCONT (07:06)
[2024-04-17 07:14] VITALS: BP 155/84; PULSE 88; RESP 18; TEMP 36.6; O2SAT 96
--- NOTE | 2024-04-17 08:13 | MHC.SHP ---
Pre-Procedural Eval Section A - 24 Hr Update-Section A only Date of Service: 04/17/24 Section B - Complete if H&P > 30 days Chief Complaint: Encounter for screening for malignant neoplasm of Present Medications: see Short Stay Collaborative assessment Medical History: No relevant PMH History of Previous Operations: Relevant previous surgery/procedure and date(s) (hysterectomy ) Allergies: Allergies Allergy/AdvReac Type Severity Reaction Status Date / Time No Known Allergies Allergy Verified 04/17/24 07:15 Review of Systems Review of Systems Comment: 10 point ROS negative Exam Exam Comment: Gen appear: No acute distress HEENT: no icterus Chest: No overt resp distress Abd: soft, nontender, nondistended Psych: Stable affect, answering questions appropriately Neuro: A/Ox3 noted to move all extremities spontaneously Ext: no peripheral edema Plan Diagnosis/Plan: Unchanged I have reviewed the history and physical and performed a pertinent physical examination on my patient. No changes have occurred unless specified. Time Spent With Patient Time: Total time managing care of this patient today ____ minutes.
--- NOTE | 2024-04-17 09:17 | P.OPN-COLO_ITS ---
Colonoscopy Operative Note Operative Note Date of Service: 04/17/24 Narrative: Procedure: Colonoscopy Indication: Screening Endoscopist: Estefany Thompson MD Anesthesia Provider: Susana Regan CRNA Anesthesia type: MAC Instrument: Olympus [id number]-[id number] Consent: Indication, risks vs benefits, and alternatives were discussed with the patient who gave written informed consent to proceed. An hourly sign language interpreter was utilized to assist with the consent. EKG, pulse, pulse oximetry and blood pressure were monitored throughout the procedure. Please see anesthesia flowsheet. Procedure: The patient was brought to the procedure room and placed in the left lateral decubitus position. IV medications were administered by the anesthesia provider in attendance. A digital rectal exam was performed which was abnormal due to finding of hemorrhoids. A distal attachment cap was affixed to the tip of the colonoscope which was then inserted through the anus and advanced through the colon to the cecum at 80 cm,and terminal ileum. Appendiceal orifice and ileocecal valve were identified. Mucosa was carefully examined under high definition white light as the instrument was slowly withdrawn in a retrograde panoramic fashion. Retroflexion was performed in rectum. The procedure was not difficult. There were no immediate obvious complications. The quality of the prep was BBPS: 2+2+2 = adequate Withdrawal time 14 minutes. Limitations: No limitations. Findings: Mucosa: Normal to cecum and terminal ileum. Protruding lesions: * 1 sessile polyp of size 4 mm in transverse colon. Cold snare polypectomy was performed. The polyp was completely removed and retrieved. * 1 sessile polyp of size 2 mm in descending colon. Cold snare polypectomy was performed. The polyp was completely removed and retrieved. * Large internal hemorrhoids without stigmata of recent bleeding. Excavated lesions: * Mild diverticulosis of left sided colon. Impression: 1. Normal colon and terminal ileum mucosa 2. Total of 2 polyps removed 3. External and internal hemorrhoids 4. Diverticulosis Recommendations: - Follow path results. - Repeat colonoscopy in 5 years due to prep.
[2024-04-17 09:22] VITALS: BP 94/51; PULSE 95; RESP 16; TEMP 36.9; O2SAT 95
[2024-04-17 09:37] VITALS: BP 124/64; PULSE 78; RESP 16; TEMP 36.1; O2SAT 97
== END 2024-04-17 10:16 | disposition home or self-care (01) ==
PROVIDERS: PCP Student in an Organized Health Care Education/Training Program; Visit Provider Internal Medicine
PROC: 0DJD8ZZ Inspection of Lower Intestinal Tract, Via Natural or Artificial Opening Endoscopic (ICD-10-PCS; CPT 45378; principal; 2024-04-17 08:30)
DX: Z12.11 Encounter for screening for malignant neoplasm of colon (principal); K63.5 Polyp of colon; K57.30 Diverticulosis of large intestine without perforation or abscess without bleeding; K64.8 Other hemorrhoids; K64.4 Residual hemorrhoidal skin tags; I10 Essential (primary) hypertension; Z79.899 Other long term (current) drug therapy; Z98.890 Other specified postprocedural states
CPT/HCPCS: 45385; 88305

== ENCOUNTER → 2024-04-17 06:45 | Outpatient (BNV) | payer MEDICAID, SELFPAY | PROVIDERS: PCP Student in an Organized Health Care Education/Training Program; Visit Provider Internal Medicine | DX: Z12.11 Encounter for screening for malignant neoplasm of colon (principal); K63.5 Polyp of colon; K57.30 Diverticulosis of large intestine without perforation or abscess without bleeding; K64.8 Other hemorrhoids | CPT/HCPCS: 45385 ==

== ENCOUNTER 2025-02-25 10:11 | Outpatient (REF) | payer MEDICAID, SELFPAY ==
[2025-02-25 11:26] LABS: Hematocrit 42.2 % (37.0-47.0); Hemoglobin 13.8 g/dl (12.0-16.0); Mean Corpuscular HGB Conc 32.7 g/dl (31.0-35.0); Mean Corpuscular Hemoglobin 27.0 pg (27.0-33.0); Mean Corpuscular Volume 82.6 fL (80.0-98.0); NRBC Abs Auto 0.000 X10*3/uL (0.0-0.012); NRBC Pct Auto 0.0 /100WBC (0.0-0.2); Platelet Count 298 X10*3/uL (160-400); Red Blood Count 5.11 X10*6/uL (4.20-5.50); White Blood Count 6.8 X10*3/uL (4.8-10.8)
[2025-02-25 11:51] LABS: Microalbum/Creatinine Ratio Ur 4.2 ug/mg cr (<30)
--- OUTSIDE RECORDS SUMMARY | 2025-02-25 12:02 | XMS_ITS | Encounter Summary ---
Author Organization [employer] Address [address] [place] [address] 7 [place] [address] Care Team Providers Care Vice President Of Procurement Name Role Phone Laila De Los Santos MD Primary Care Pro vider Clarisse Stinson DDS Unavailable [phone] Encounter Details Date Type Department Care Team (Late st Contact Info) Description 04/03/2024 Orders Only [facility] [address] [place], [place] [phone] Laila De Los Santos MD [address] [place], [place] [phone] Social History Tobacco Use Types Packs/Day Years Used Date Smoking Tobacco: Never Passive Smoke Exposure: Never Smokeless Tobacco: Never Alcohol Use Standard Drinks/Week Comments Never 0 (1 standard drink = 0.6 oz pur e alcohol) Depression Answer Date Recorded Patient Health Questionnaire-9 Score 3 09/14/2023 Patient Health Questionnaire-9 Score 3 09/14/2023 Last PHQ-9: Questionnaire Data Not on file 0 09/14/2023 Housing Stability Answer Date Recorded What is your housing situation today? I have jenaro sing 09/06/[address] you li ve. Do you have problems with any of the following? None of the above 09/06/2023 Food Insecurity Answer Date Recorded Within the past 12 months, y ou worried that your food would run out before you got money to buy more: Never True 09/06/2023 Within the past 12 months,th e food you bought just didn't last and you didn't have enough money to get more: Never True Transportation Answer Date Recorded In the past 12 months, has l ack of transportation kept you from medical appts, meetings, work or from getting things needed for daily living? No 09/06/2023 Utilities Answer Date Recorded In the past 12 months, has t he electric, gas, oil or water company threatened to shut off services in your home? No 09/06/2023 Depression Answer Date Recorded Patient Health Questionnaire-2 Score 1 09/14/2023 Comments No Sex and Gender Information Value Date Recorded Sex Assigned at Female 12/20/2022 8:16 AM EDT Legal Sex Female 8:10 AM EDT Gender Identity Female 12/20/2022 8:16 AM EDT Sexual Orientation Straight 12/20/2022 8: 16 AM EDT documented as of this encounter Plan of Treatment Upcoming Encounters Date Type Department Care Team (Late st Contact Info) Description 03/04/2025 10:00 AM EDT Office Visit [facility] [address] [place] [address] Laila De Los Santos MD [address] [place] [phone] documented as of this encounter Visit Diagnoses Not on filedocumented in this encounter Additional Health Concerns Assessment Noted Time PHQ-9 Depression Total Score: 3 09/14/19 24 10:32 AM EDT documented as of this encounter Care Teams Vice President Of Procurement Relationship Specialty Start Date End Date Laila De Los Santos MD [address] [place] [phone] PCP - General Internal Medicine 09/26/23 Clarisse Stinson DDS [address] [place], [place] [phone] Dental Delicatessen Clerk 07/31/24 documented as of this encounter
--- OUTSIDE RECORDS SUMMARY | 2025-02-25 12:02 | XMS_ITS | Encounter Summary ---
Author Organization [employer] Address [address] [facility] 7t [place] [address] Care Team Providers Care Optical Engineering Technician Name Role Phone Laila De Los Santos MD Primary Care Pro vider Clarisse Stinson DDS Unavailable [phone] Encounter Details Date Type Department Care Team (Late st Contact Info) Description 07/02/2024 Orders Only [facility] [address] [place] [address] Provider, MD Shola Social History Tobacco Use Types Packs/Day Years [...] your housing situation today? I have jenaro givens 09/06/[address] you li [...] Description 03/04/2025 10:00 AM EDT Office Visit [facility] [address] [place] [address] Laila De Los Santos MD [address] [place] [phone] documented as of this encounter Visit Diagnoses Not on filedocumented in this encounter Additional Health Concerns Assessment Noted Time PHQ-9 Depression Total Score: 3 09/14/19 10:32 AM EDT documented as of this encounter Care Teams Optical Engineering Technician Relationship Specialty Start Date End Date Laila De Los Santos MD [address] [place] [phone] PCP - General Internal Medicine 09/26/23 Clarisse Stinson DDS [address] [place] [phone] Dental Sewing Pattern Layout Technician 07/31/24 documented as of this encounter
--- OUTSIDE RECORDS SUMMARY | 2025-02-25 12:02 | XMS_ITS | Encounter Summary ---
Author Organization [employer] Address [address] [place] [address] 7 [place] [address] Care Team Providers Care Gold Cutter Name Role Phone Laila De Los Santos MD Primary Care Pro vider Clarisse Stinson DDS Unavailable [phone] Reason for Visit * Reason Comments Med Refill Encounter Details Date Type Department Care Team ([facility] st Contact Info) Description 06/09/2024 Refill [facility] [address] [place], [place] [phone] Laila De Los Santos MD 230 [place], [place] [phone] Social History Tobacco Use Types Packs/Day Years [...] Description 03/04/2025 10:00 AM EDT Office Visit [facility] [address] [place] [address] Laila De Los Santos MD [address] [place] [address] documented as of this encounter Visit Diagnoses Not on filedocumented in this encounter Additional Health Concerns Assessment Noted Time PHQ-9 Depression Total Score: 3 09/14/19 24 10:32 AM EDT documented as of this encounter Care Teams Gold Cutter Relationship Specialty Start Date End Date Laila De Los Santos MD [address] [place] [phone] PCP - General Internal Medicine 09/26/23 Clarisse Stinson DDS [address] [place] [address] [phone] Dental Ship Propeller Finisher 07/31/24 documented as of this encounter
--- OUTSIDE RECORDS SUMMARY | 2025-02-25 12:02 | XMS_ITS | Encounter Summary ---
Author Organization [employer] Address [address] [facility] 7t [place] [address] Care Team Providers Care Anodiser Name Role Phone Laila De Los Santos MD Primary Care Pro vider Clarisse Stinson DDS Unavailable + [phone] Encounter Details Date Type Department Care Team (Late st Contact Info) Description 05/01/2024 Orders Only [facility] [address] [place] [address] Provider, MD Shola Social History Tobacco Use [...] Description 03/04/2025 10:00 AM EDT Office Visit [facility] [address] [place] [address] Laila De Los Santos MD [address] [place] [phone] documented as of this encounter Procedures Procedure Name Priority Date/Time Associated Diagnosis Comments HM COLONOSCOPY Routine 04/17/2024 2:02 PM EST documented in this encounter Results * Hm Colonoscopy (04/17/2024 2:02 PM EST) Historical Provider HEALTH MAINTENANCE Final Result documented in this encounter Visit Diagnoses Not on filedocumented in this encounter Additional Health Concerns Assessment Noted Time PHQ-9 Depression Total Score: 3 09/14/19 24 10:32 AM EDT documented as of this encounter Care Teams Anodiser Relationship Specialty Start Date End Date Laila De Los Santos MD [address] [place] [phone] PCP - General Internal Medicine 09/26/23 Clarisse Stinson DDS [address] [place] [address] [phone] Dental Dealer Sales Manager 07/31/24 documented as of this encounter
--- OUTSIDE RECORDS SUMMARY | 2025-02-25 12:02 | XMS_ITS | Encounter Summary ---
Author Organization [employer] Address [address] [place] [address] 7 [place] [address] Care Team Providers Care Certified Prosthetist Vice President Name Role Phone Laila De Los Santos MD Primary Care Pro vider Clarisse Stinson DDS Unavailable [phone] Reason for Visit * Reason Onset Date Comments Med Refill 06/09/2024 Encounter Details Date Type Department Care Team (Late st Contact Info) Description 06/09/2024 Telephone [facility] [address] [place], [place] [phone] Laila De Los Santos MD [address] [place], [place] [phone] Med Refill Social History Tobacco Use Types Packs/Day Years [...] AM EDT documented as of this encounter Miscellaneous Notes * Telephone Encounter - Anusha Hays LPN - 06/10/2024 10:36 AM EST Duplicate request, triage nurse sent to nurses yesterday awaiting response. * Telephone Encounter - Ubaldo Mayes - 06/09/2024 10:02 AM EST TC from pt requesting medication refill. Medications needing refill : Tirzepatide-Weight Management 2.5 MG/0.5ML solution auto-injector To be sent to: [id number] [place], [place] - [address] [facility] [address] documented in this encounter Plan of Treatment Upcoming Encounters Date Type Department Care Team ([facility] st Contact Info) Description 03/04/2025 10:00 AM EDT Office Visit [facility] [address] [place] [address] Laila De Los Santos MD [address] [place], [place] [phone] documented as of this encounter Visit Diagnoses Not on filedocumented in this encounter Additional Health Concerns Assessment Noted Time PHQ-9 Depression Total Score: 3 09/14/19 24 10:32 AM EDT documented as of this encounter Care Teams Certified Prosthetist Vice President Relationship Specialty Start Date End Date Laila De Los Santos MD [address] [place] [address] PCP - General Internal Medicine 09/26/23 Clarisse tSinson DDS [address] [place] [address] Dental Supervisor Cell Room 07/31/24 documented as of this encounter
--- OUTSIDE RECORDS SUMMARY | 2025-02-25 12:02 | XMS_ITS | Encounter Summary ---
Author Organization [employer] Address [address] [facility] 7t [place] [address] Care Team Providers Care Gem Setter Name Role Phone Laila De Los Santos MD Primary Care Pro vider Clarisse Stinson DDS Unavailable [phone] Reason for Visit * Reason Comments Med Refill Encounter Details Date Type Department Care Team (Late st Contact Info) Description 06/09/2024 Refill [facility] [address] [place] [address] [phone] Name, MD Steve [address] [place], [place] [phone] Social History Tobacco Use Types Packs/Day Years [...] your housing situation today? I have jenaro chon 09/06/[address] you li [...] 10:00 AM EDT Office Visit [facility] [address] [place] [address] Laila De Los Santos MD [address] [place] [address] documented as of this encounter Visit Diagnoses Not on filedocumented in this encounter Additional Health Concerns Assessment Noted Time PHQ-9 Depression Total Score: 3 09/14/19 24 10:32 AM EDT documented as of this encounter Care Teams Gem Setter Relationship Specialty Start Date End Date Laila De Los Santos MD [address] [place] [phone] PCP - General Internal Medicine 09/26/23 Clarisse Stinson DDS [address] [place] [address] [phone] Dental Insurance Territory Manager 07/31/24 documented as of this encounter
--- OUTSIDE RECORDS SUMMARY | 2025-02-25 12:03 | XMS_ITS | Encounter Summary ---
Author Organization [employer] Address [address] [place] [address] 7 [place] [address] Care Team Providers Care Senior Software Engineering Manager Name Role Phone Laila De Los Santos MD Primary Care Pro vider Clarisse Stinson DDS Unavailable [phone] Reason for Visit * Reason Comments Med Refill Encounter Details Date Type Department Care Team ([facility] st Contact Info) Description 02/23/2025 Refill [facility] [address] [place], [place] [phone] Laila De Los Santso MD [address] [place], [place] [phone] Social History Tobacco Use Types Packs/Day Years Used Date Smoking Tobacco: Never Passive Smoke Exposure: Never Smokeless Tobacco: Never Alcohol Use Standard Drinks/Week Comments Never 0 (1 standard drink = 0.6 oz pur e alcohol) Depression Answer Date Recorded Patient Health Questionnaire-9 Score 2 12/26/2024 Patient Health Questionnaire-9 Score 2 12/26/2024 Last PHQ-9: Questionnaire Data Not on file 0 12/26/2024 Housing Stability Answer Date Recorded What is your housing situation today? I have jenaro chon 09/06/[address] you li ve. Do you have problems with any of the following? None of the above 09/06/2023 Food Insecurity Answer Date Recorded Within the past 12 months, y ou worried that your food would run out before you got money to buy more: Sometimes True 2024 Within the past 12 months,th e food you bought just didn't last and you didn't have enough money to get more: Sometimes True 08/05/2024 Transportation Answer Date Recorded In the past [...] Answer Date Recorded Patient Health Questionnaire-2 Score 0 12/26/2024 Internet Access Answer Date Recorded Internet Access Q1 Yes 08/05/2024 Internet Access Q2 Not on file 08/05/2024 Comments No Sex and Gender Information Value [...] Description 03/04/2025 10:00 AM EDT Office Visit [facility] [address] [place] [address] Laila De Los Santos MD [address] [place] [address] documented as of this encounter Visit Diagnoses Not on filedocumented in this encounter Additional Health Concerns Assessment Noted Time PHQ-9 Depression Total Score: 2 12/27/19 2:00 PM EDT documented as of this encounter Care Teams Senior Software Engineering Manager Relationship Specialty Start Date End Date Laila De Los Santos MD [address] [place] [phone] PCP - General Internal Medicine 09/26/23 Clarisse Stinson DDS [address] [place] [address] [phone] Dental Erp Manager 07/31/24 documented as of this encounter
--- OUTSIDE RECORDS SUMMARY | 2025-02-25 12:03 | XMS_ITS | Clinical Summary ---
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 10/13/2024 Active Vivelle-Dot 0.075 mg/24 hr UNWRAP AND APPLY 1 PATCH TO SKIN EVERY SUNDAY AND SUNDAY Active Active Problems Problem Noted Date Diagnosed Date Biliary colic 02/10/2025 Weight loss 02/10/2025 Calculus of gallbladder with out cholecystitis without obstruction 12/23/2024 Nausea and vomiting 12/23/2024 Abdominal pain 12/22/2024 Encounters Date Type Department Care Team Description 02/10/2025 11:30 AM EDT Consult General Surgery - [place] [address] [facility] [address] [place] [address] Katiana Perrin MD Biliary colic (Primary Dx); Weight loss 12/22/2024 8:01 AM EDT - 12/23/2024 3:20 PM EDT Hospital Encounter [facility] [address] [place] [phone] Prosper Pugh MD Bukalo, Nermina, MD Bell, Alistair A, MD Biliary colic (Primary Dx); Calculus of gallbladder without cholecystitis without obstruction; Nausea and vomiting, unspecified vomiting type; Starvation ketoacidosis Discharge Disposition: Home or Self Care from Last 3 Months Medical History Medical History Date Comments Hypertension Social History Tobacco Use Types Packs/Day Years Used Date Smoking Tobacco: Never Smokeless Tobacco: Never Tobacco Cessation:Counseling Given: Not Answered Interpersonal Safety Answer Date Record ed Physical Abuse Unrecognized value 12/22/2024 Verbal Abuse Unrecognized value 12/22/2024 Comments Unknown Sex and Gender Information Value Date Recorded Sex Assigned at Not on file Legal Sex Female 12:43 PM EST Gender Identity Not on file Sexual Orientation Not on file Obstetrics History Last Filed Vital Signs Vital Sign Reading Time Taken Comments Blood Pressure 126/80 02/10/2025 11:39 AM EDT Pulse 78 02/10/2025 11:39 AM EDT Temperature 36.2 C (97.1 F) 02/10/2025 11:39 AM EDT Respiratory Rate 16 12/23/2024 1:54 AM EDT Oxygen Saturation 98% 12/23/2024 1:43 PM EDT Inhaled Oxygen Concentration - - Weight 72.6 kg (160 lb) 02/10/2025 11:39 AM EDT Height 152.4 cm (5') 02/10/2025 11:39 AM EDT Body Mass Index 31.25 02/10/2025 11:39 AM EDT Plan of Treatment Upcoming Encounters Date Type Department Care Team (Latest Contact Info) Description 04/23/2025 7:30 AM EST Hospital Encounter [facility] OR [address] [place] [phone] Katiana Perrin MD [address] [place] [phone] 04/23/2025 7:30 AM EST - 04/23/2025 9:30 AM EST Surgery [facility] OR [address] [place] [phone] Katiana Perrin MD [address] [place] [phone] CHOLECYSTECTOMY LAPAROSCOPIC ? OPEN [60660 (CPT )] 05/05/2025 9:30 AM EST Office Visit General Surgery - [address] [phone] Katiana Perrin MD [facility] [place] [phone] Scheduled Procedures Name Priority Associated Diagnoses Date/Ti me CHOLECYSTECTOMY LAPAROSCOPIC Biliary colic Weight loss 04/23/2025 7:30 AM EST Health Maintenance Due Date Last Done Comments Breast Cancer Screening 1969 Colorectal Cancer Screening: Colonoscopy 1969 Hepatitis B Vaccines (1 of 3 - 19+ 3-dose series) 1988 Cervical Cancer Screening: Pap Smear 1990 Pneumococcal Vaccine: 50+ Years (1 of 1 - PCV) 11/17/2019 Zoster Vaccines (1 of 2) 11/17/2019 Social Influencers of Health Screening 04/11/2022 Depression Screening 05/14/2024 Influenza Vaccine (#1) 2025 04/02/2024 Hypertension/CHF/CAD Annual BMP Blood Test 12/23/2025 12/23/2024, 12/22/2024 Cholesterol Screening (Lipid Panel) 04/07/2029 04/07/2024 DTaP,Tdap,and Td Vaccines (2 - Td or Tdap) 05/23/2033 05/23/2023 RSV Immunization Adult Patients (1 - 1-dose 75+ series) 2044 HIV Screening Completed 10/01/2023 Hepatitis C Screening Completed 10/01/2023 COVID-19 Vaccine Completed 04/02/2024, 07/2023, 11/05/2020, Additional history exists HIB Vaccines Aged Out No longer eligi ble based on patient's age to complete this topic HPV Vaccines Aged Out No longer eligi ble based on patient's age to complete this topic Hepatitis A Vaccines Aged Out No long er eligible based on patient's age to complete this topic IPV Vaccines Aged Out No longer eligi ble based on patient's age to complete this topic MMR Vaccines Aged Out No longer eligi ble based on patient's age to complete this topic Meningococcal ACWY Vaccine Aged Out N o longer eligible based on patient's age to complete this topic Meningococcal B Vaccine Aged Out No l onger eligible based on patient's age to complete this topic RSV Immunization Patients Under 20 months Aged Out No longer eligible based on patient's age to complete this topic Varicella Vaccines Aged Out No longer eligible based on patient's age to complete this topic Goals Goal Patient Goal Type Associated Problems Recent Progress Patient-Stated? Author Autogenerat ed Goal Care Plan Autogenerated Problem No Katiana Perrin MD Procedures Procedure Name Priority Date/Time Associated Diagnosis Comments DRUG ABUSE SCREEN 8A PANEL, URINE STAT 12/23/2024 9:23 AM EDT HEPATIC FUNCTION PANEL Add-On 5:22 AM EDT COMPLETE BLOOD COUNT Routine 12/23/2024 5:22 AM EDT BASIC METABOLIC PANEL Routine 12/23/2024 5:22 AM EDT ECG ANNOTATED 12/23/2024 TROPONIN I HIGH SENSITIVITY STAT 12/22/2024 6:14 PM EDT MATTHEWS URINE CULTURE TUBE STAT 12/23/19 1:46 PM EDT URINALYSIS WITH REFLEX MICROSCOPIC AND CULTURE STAT 12/22/2024 1:46 PM EDT URINALYSIS WITH REFLEX MICROSCOPIC AND CULTURE STAT 12/22/2024 1:46 PM EDT US ABDOMEN LIMITED STAT 12/22/2024 12 :[address] ABDOMEN PELVIS W CONTRAST STAT 12/22/2024 11:00 AM EDT ECG 12-LEAD STAT 12/22/2024 10:10 AM EDT D-DIMER STAT Add-on 12/22/2024 9:48 AM EDT BETA HYDROXYBUTYRATE STAT 12/22/2024 9:48 AM EDT PROTHROMBIN TIME WITH INR STAT 12/22/2024 9:48 AM EDT TROPONIN I HIGH SENSITIVITY STAT 12/22/2024 9:48 AM EDT B-TYPE NATRIURETIC PEPTIDE STAT 12/22/2024 9:48 AM EDT LACTATE STAT 12/22/2024 9:48 AM EDT MAGNESIUM STAT 12/22/2024 9:48 AM EDT XR CHEST 1 VIEW STAT 12/22/2024 9:20 AM EDT CBC WITH AUTO DIFFERENTIAL STAT 12/22/2024 8:33 AM EDT CBC AND DIFFERENTIAL STAT 12/22/2024 8:33 AM EDT LIPASE STAT 12/22/2024 8:33 AM EDT COMPREHENSIVE METABOLIC PANEL STAT 12/22/2024 8:33 AM EDT from Last 3 Months Results * (ABNORMAL) Drug abuse screen 8a panel, urine (12/23/2024 9:23 AM EDT) Amphetamine Screen, Ur Negative Negative LAB CHEMISTRY METHOD 5 11:[address] [facility] Comment:Certain OTC medicati ons containing ephedrine, phenylephrine, pseudoephedrine and phenylpropanolamine can cause false positive results. Barbiturate Screen, Ur Negative Negative LAB CHEMISTRY METHOD 5 11:[address] [facility] Benzodiazepine Screen, Ur Negative Negative LAB CHEMISTRY METHOD 5 11:29 AM [facility] Cocaine Screen, Ur Negative Negative LAB CHEMISTRY METHOD 5 11:[address] [facility] Opiate Screen, Ur Positive(A ) Negative LAB CHEMISTRY METHOD 5 11:29 AM [facility] Cannabinoid (THC) Screen, Ur Negative Negative LAB CHEMISTRY METHOD 5 11:[address] [facility] Comment:Specimens from patie nts taking pantoprazole sodium (Protonix) have been shown to produce false positive results. Oxycodone Screen, Ur Negative Negative LAB CHEMISTRY METHOD 11:[address] [facility] Fentanyl, Ur Negative Negative LAB CHEMISTRY METHOD 11:[address] [facility] Urine Urine specimen obtained by clean catch procedure / Unknown Non-blood Collection / Unknown 12/23/2024 9:23 AM EDT 12/23/2024 9:32 AM EDT [facility] - 12/23/2024 11:29 AM EDT Assay cutoffs: Amphetamines 1000 ng/mL Barbiturates 200 ng/mL Benzodiazepines 200 ng/mL Cocaine 300 ng/mL Fentanyl 1 ng/mL Opiates 300 ng/mL Oxycodone 100 ng/mL THC 50 ng/mL Semi-quantitative assay for screening purposes only. Unconfirmed screening result should not be used for non-medical purposes. *ALTERNATE METHOD CONFIRMATION DONE UPON REQUEST ONLY* us Waqar Casarez MD LAB URINE ORDERABLES Final Res ult [facility] [address] [place] [address], [place] [phone] * (ABNORMAL) Complete blood count (12/23/2024 5:22 AM EDT) WBC 6.1 4.8 - 10.8 K/mcL LAB HEMETOLOGY METHOD 12/23/2024 6:[address] [facility] RBC 5.00(H) 3.80 - 4.80 M/mcL LAB HEMETOLOGY METHOD 12/23/2024 6:[address] [facility] Hemoglobin 13.4 11.5 - 16.0 g/dL LAB HEMETOLOGY METHOD 12/23/2024 6:[address] [facility] Hematocrit 41.3 35.0 - 47.0 % LAB HEMETOLOGY METHOD 12/23/2024 6:[address] [facility] MCV 82.8 79.0 - 98.0 FL LAB HEMETOLOGY METHOD 12/23/2024 6:[address] [facility] MCH 26.9(L) 27.0 - 32.0 pcg LAB HEMETOLOGY METHOD 12/23/2024 6:[address] [facility] MCHC 32.4 32.0 - 37.0 g/dL LAB HEMETOLOGY METHOD 12/23/2024 6:[address] [facility] RDW 13.0 11.0 - 15.0 % LAB HEMETOLOGY METHOD 12/23/2024 6:[address] [facility] Platelets 278 130 - 400 K/mcL LAB HEMETOLOGY METHOD 12/23/2024 6:[address] [facility] MPV 9.2 7.0 - 11.0 FL LAB HEMETOLOGY METHOD 12/23/2024 6:[address] [facility] NRBC 0.0 <1.0 % LAB HEMETOLOGY METHOD 12/23/2024 6:[address] [facility] NRBC Absolute 0.00 <0.10 K/mcL LAB HEMETOLOGY METHOD 12/23/2024 6:[address] [facility] Blood Venous blood specimen / Unknown Venipuncture / Unknown 12/23/2024 5:22 AM EDT 12/23/2024 6:21 AM EDT us Waqar Casarez MD LAB BLOOD ORDERABLES Final Res ult [facility] [address] [place] [address], * Hepatic function panel (12/23/2024 5:22 AM EDT) Total Protein 6.3 6.0 - 8.0 g/dL LAB CHEMISTRY METHOD 12/23/2024 9:[address] [facility] Albumin 3.4 3.2 - 5.0 g/dL LAB CHEMISTRY [facility]/23[facility] Total Bilirubin 1.1 0.0 - 1.4 mg/dL LAB CHEMISTRY METHOD 12/23/2024 9:[address] [facility] Bilirubin, Direct 0.2 0.0 - 0.3 mg/dL LAB CHEMISTRY METHOD 12/23/2024 9:40 AM [facility] Bilirubin, Indirect 0.9 0.0 - 1.1 mg/dL LAB CHEMISTRY METHOD 12/23/2024 9:40 AM [facility] ALT (SGPT) 32 10 - 60 unit/L LAB CHEMISTRY METHOD 12/23/2024 9:40 AM [facility] AST (SGOT) 18 10 - 42 unit/L LAB CHEMISTRY METHOD 12/23/2024 9:40 AM [facility] Alkaline Phosphatase 66 42 - 121 unit/L LAB CHEMISTRY METHOD 12/23/2024 9:40 AM [facility] Blood Venous blood specimen / Unknown Venipuncture / Unknown 12/23/2024 5:22 AM EDT 12/23/2024 6:21 AM EDT us Ashvin Peres MD LAB BLOOD ORDERABLES Final Re sult [facility] [address] [place] [address], * Basic metabolic panel (12/23/2024 5:22 AM EDT) Pathologist [facility] Sodium 139 133 - 145 mmol/L LAB CHEMISTRY METHOD 12/23/2024 7:27 AM [facility] Potassium 3.6 3.5 - 5.5 mmol/L LAB CHEMISTRY METHOD 12/23/2024 7:27 AM [facility] Chloride 106 96 - 110 mmol/L LAB CHEMISTRY METHOD 12/23/2024 7:27 AM [facility] CO2 29 21 - 32 mmol/L LAB CHEMISTRY METHOD 12/23/2024 7:27 AM [facility] Anion Gap 4 3 - 11 LAB CHEMISTRY METHOD 12/23/2024 7:27 AM [facility] Glucose 71 70 - 100 mg/dL LAB CHEMISTRY METHOD 12/23/2024 7:27 AM [facility] BUN 9 5 - 25 mg/dL LAB CHEMISTRY METHOD 12/23/2024 7:27 AM [facility] Creatinine 0.70 0.50 - 1.10 mg/dL LAB CHEMISTRY METHOD 12/23/2024 7:27 AM [facility] eGFR 102 >=60 mL/min/1. 73m2 LAB CHEMISTRY METHOD 12/23/2024 7:27 AM [facility] Comment:Calculation based on the Chronic Kidney Disease Epidemiology Collaboration (CKD-EPI) equation refit without adjustment for race. BUN/Creatinine Ratio 12.9 LAB CHEMISTRY METHOD 12/23/2024 7:27 AM [facility] Calcium 9.0 8.5 - 10.5 mg/dL LAB CHEMISTRY METHOD 12/23/2024 7:27 AM [facility] Blood Venous blood specimen / Unknown Venipuncture / Unknown 12/23/2024 5:22 AM EDT 12/23/2024 6:21 AM EDT us Waqar Casarez MD LAB BLOOD ORDERABLES Final Res ult [facility] [address] [place] [address], [place] [phone] * ECG-Annotated (12/23/2024) us Provider Onbase ECG ORDERABLES Final Result * Troponin I high sensitivity (12/22/2024 6:14 PM EDT) Only the most recent of2 resultswithin the time period is included. [facility] High Sensitivity Troponin I 5 <=54 ng/L LAB CHEMISTRY METHOD 12/22/2024 7:[address] [facility] Blood Venous blood specimen / Unknown Venipuncture / Unknown 12/22/2024 6:14 PM EDT 12/22/2024 6:[address] [facility] - 12/22/2024 7:00 PM EDT High levels of biotin in samples may falsely decrease hsTroponin values. Use caution when interpreting hsTroponin results in patients taking biotin who exhibit renal impairment (eGFR <60) or in patients taking more than 20 mg/day of biotin. Waqar Casarez MD LAB BLOOD ORDERABLES Final Res ult [facility] [address] [place] [address], [place] [phone] * (ABNORMAL) Urinalysis with reflex microscopic and culture (12/22/2024 1:46 PM EDT) [facility] Specific [place] Urine >1.045(H) 1.003 - 1.030 LAB URINALYSIS - AUTOMATED METHOD 12/22/2024 2:[address] [facility] pH, Urine 6.5 5.0 - 8.0 pH LAB URINALYSIS - AUTOMATED METHOD 12/22/2024 2:[address] [facility] Leukocytes, Urine Negative Negative LAB URINALYSIS - AUTOMATED METHOD 12/22/2024 2:[address] [facility] Nitrite, Urine Negative Negative LAB URINALYSIS - AUTOMATED METHOD 12/22/2024 2:[address] [facility] Protein, Urine Trace <=Trace mg/dL LAB URINALYSIS - AUTOMATED METHOD 12/22/2024 2:[address] [facility] Glucose, Urine Negative Negative mg/dL LAB URINALYSIS - AUTOMATED METHOD 12/22/2024 2:[address] [facility] Ketones, Urine >=80(A) Negative mg/dL LAB URINALYSIS - AUTOMATED METHOD 12/22/2024 2:[address] [facility] Urobilinogen , Urine 1.0 0.2 - 1.0 mg/dL LAB URINALYSIS - AUTOMATED METHOD 12/22/2024 2:[address] [facility] Bilirubin, Urine Negative Negative LAB URINALYSIS - AUTOMATED METHOD 12/22/2024 2:[address] [facility] Blood, Urine Negative Negative LAB URINALYSIS - AUTOMATED METHOD 12/22/2024 2:[address] [facility] Urine Urine specimen obtained by clean catch procedure / Unknown Non-blood Collection / Unknown 12/22/2024 1:46 PM EDT 12/22/2024 2:05 PM EDT us Prosper Pugh MD LAB URINE ORDERABLES Final Resul t [facility] [address] [place] [address], * Matthews urine culture tube (12/22/2024 1:46 PM EDT) Extra Tube Hold for add-ons. 12/22/2024 4:[address] [facility] Comment:Auto resulted. Urine Urine specimen obtained by clean catch procedure / Unknown Non-blood Collection / Unknown 12/22/2024 1:46 PM EDT 12/22/2024 2:04 PM EDT us Prosper Pugh MD LAB URINE ORDERABLES Final Resul t [facility] [address] [place] [address], [place] [phone] * US Abdomen Limited (12/22/2024 12:31 PM EDT) Anatomical Region Laterality Modality Body Ultrasound 12/22/2024 1:07 PM EDT Impressions 12/22/2024 1:09 PM EDT Impression: 1. Cholelithiasis. No evidence of acute cholecystitis or biliary obstruction. 2. Fatty liver. [employer] CAM ([id number]) -------- FINAL REPORT -------- Dictated By: Alyssa Lee Dictated Date: 12/22/2024 13:07 ET Assigned Physician: Alyssa Lee Reviewed and Electronically Signed By: Alyssa Lee Signed Date: 12/22/2024 13:09 ET Workstation ID: [id number] Transcribed By: Self Edit Transcribed Date: 12/22/2024 13:07 ET Narrative 12/22/2024 1:09 PM EDT History: Abdominal pain. Comparison: CT abdomen/pelvis from earlier today. Findings: Real-time imaging of the abdomen, limited to the right upper quadrant, was performed. The hepatic echogenicity is diffusely increased, with poor visualization of the burton of the peripheral portal venous vasculature, consistent with fatty infiltration. No masses are identified. The portal vein is patent and exhibits normal, hepatopedal flow. The gallbladder is physiologically distended and contains a 2 cm mobile calculus. The gallbladder wall is normal in thickness. No pericholecystic fluid is seen. No sonographic Segura's sign was found, per technologist notes. The common duct is normal in caliber, measuring 2 mm at the level of the hepatic artery and portal vein. No ascites is seen in the right upper quadrant. A survey view of the right kidney is unremarkable. The pancreas is partially obscured by bowel gas shadowing; the visualized portions of the neck and body appear normal. Procedure Note Alyssa Lee MD - 12/22/2024 History: Abdominal pain. Comparison: CT abdomen/pelvis from earlier today. Findings: Real-time imaging of the abdomen, limited to the right upper quadrant, wasperformed. The hepatic echogenicity is diffusely increased, with poor visualizationof the burton of the peripheral portal venous vasculature, consistent withfatty infiltration. No masses are identified. The portal vein is patentand exhibits normal, hepatopedal flow. The gallbladder is physiologically distended and contains a 2 cm mobilecalculus. The gallbladder wall is normal in thickness. No pericholecysticfluid is seen. No sonographic Segura's sign was found, per technologistnotes. The common duct is normal in caliber, measuring 2 mm at the levelof the hepatic artery and portal vein. No ascites is seen in the right upper quadrant. A survey view of the rightkidney is unremarkable. The pancreas is partially obscured by bowel gas shadowing; the visualizedportions of the neck and body appear normal. IMPRESSION: Impression: 1. Cholelithiasis. No evidence of acute cholecystitis or biliaryobstruction. 2. Fatty liver. [employer] CAM ([id number]) -------- FINAL REPORT -------- Dictated By: Alyssa Lee Dictated Date: 12/22/2024 13:07 ET Assigned Physician: Alyssa Lee Reviewed and Electronically Signed By: Alyssa Lee Signed Date: 12/22/2024 13:09 ET Workstation ID: [id number] Transcribed By: Self Edit Transcribed Date: 12/22/2024 13:07 ET us Prosper Pugh MD IM US PROCEDURES Final Result * CT Abdomen Pelvis w Contrast (12/22/2024 11:00 AM EDT) Anatomical Region Laterality Modality Body Computed Tomogra phy 12/22/2024 11:2 4 AM EDT Impressions 12/22/2024 11:28 AM EDT Impression: 1. No acute abdominal process identified. 2. Heterogeneous gallbladder contents suspicious for gallstones. [employer] [place] ([id number]) -------- FINAL REPORT -------- Dictated By: Alyssa Lee Dictated Date: 12/22/2024 11:24 ET Assigned Physician: Alyssa Lee Reviewed and Electronically Signed By: Alyssa Lee Signed Date: 12/22/2024 11:28 ET Workstation ID: [id number] Transcribed By: Self Edit Transcribed Date: 12/22/2024 11:24 ET Narrative 12/22/2024 11:28 AM EDT History: Nausea, vomiting and diarrhea. Abdominal pain. Comparison: 01/30/13 Technique: Helical volumetric imaging of the abdomen and pelvis was performed during the uneventful intravenous administration of 90 cc Isovue-370. DLP: 1159.47 mGy/cm [facility] [place] Iterative reconstruction technique Findings: The liver is normal in size and configuration. No masses are identified. The portal vein is patent. The gallbladder is physiologically distended. The gallbladder contents are heterogeneous, raising the possibility of gallstones. No evidence of biliary obstruction is seen. Spleen, pancreas and adrenal glands are unremarkable. The kidneys are normal in position and size, with symmetric, intact nephrograms and no evidence of hydronephrosis or mass. The abdominal aorta and IVC are unremarkable. There is no ascites. The uterus is absent. The urinary bladder is normal. No developing lymphadenopathy is seen. No evidence of bowel obstruction is identified. The appendix is normal in caliber in the right lower quadrant. No abnormal perienteric or pericolonic fat stranding is seen. No significant osseous abnormality is identified. A 5 mm radiolucent lesion within the L3 vertebral body is visible on the 2013 exam. Procedure Note Alyssa Lee MD - 12/22/2024 History: Nausea, vomiting and diarrhea. Abdominal pain. Comparison: 01/30/13 Technique: Helical volumetric imaging of the abdomen and pelvis wasperformed during the uneventful intravenous administration of 90 ccIsovue-370. DLP: 1159.47 mGy/cm [employer] Iterative reconstruction technique Findings: The liver is normal in size and configuration. No masses are identified.The portal vein is patent. The gallbladder is physiologically distended.The gallbladder contents are heterogeneous, raising the possibility ofgallstones. No evidence of biliary obstruction is seen. Spleen, pancreas and adrenal glands are unremarkable. The kidneys are normal in position and size, with symmetric, intactnephrograms and no evidence of hydronephrosis or mass. The abdominal aorta and IVC are unremarkable. There is no ascites. Theuterus is absent. The urinary bladder is normal. No developinglymphadenopathy is seen. No evidence of bowel obstruction is identified. The appendix is normal incaliber in the right lower quadrant. No abnormal perienteric orpericolonic fat stranding is seen. No significant osseous abnormality is identified. A 5 mm radiolucentlesion within the L3 vertebral body is visible on the 2013 exam. IMPRESSION: Impression: 1. No acute abdominal process identified. 2. Heterogeneous gallbladder contents suspicious for gallstones. [employer] [place] ([id number]) -------- FINAL REPORT -------- Dictated By: Alyssa Lee Dictated Date: 12/22/2024 11:24 ET Assigned Physician: Alyssa Lee Reviewed and Electronically Signed By: Alyssa Lee Signed Date: 12/22/2024 11:28 ET Workstation ID: [id number] Transcribed By: Self Edit Transcribed Date: 12/22/2024 11:24 ET us Jean Lake MD IMG CT PROCEDURES Final Result * 12-Lead ECG (12/22/2024 10:10 AM EDT) Ventricular Rate ECG 91 BPM GEMUSE Atrial Rate 91 BPM GEMUSE P-R Interval 166 ms GEMUSE QRS Duration 70 ms GEMUSE Q-T Interval 388 ms GEMUSE QTc 477 ms GEMUSE P Wave [place] 42 degrees GEMUSE T [place] 27 degrees GEMUSE ECG Interpretation Normal sinus rhythm Normal ECG When compared with ECG of 08-FEB-2010 16:45, QT has lengthened Confirmed by MD Clay, Tulio ([id number]) on 12/22/2024 5:08:46 PM GEMUSE 12/22/2024 10:1 0 AM EDT 12/22/2024 5:08 PM EDT us Prosper Pugh MD ECG ORDERABLES Final Result GEMUSE * (ABNORMAL) Beta hydroxybutyrate (12/22/2024 9:48 AM EDT) [facility] Beta-Hydroxyb utyrate 12.1(H) 0.2 - 2.8 mg/dL LAB CHEMISTRY METHOD 12/22/2024 10:[address] [facility] Blood Venous blood specimen / Unknown Venipuncture / Unknown 12/22/2024 9:48 AM EDT 12/22/2024 9:59 AM EDT us Prsoper Pugh MD LAB BLOOD ORDERABLES Final Resul t Performing Organization Address City/[facility] [address]/ZIP Co de Phone Number [facility] [address] [place] [address], [place] [phone] * (ABNORMAL) Prothrombin time with INR (12/22/2024 9:48 AM EDT) [facility] Protime 14.2(H) 10.6 - 13.9 sec LAB COAGULATION METHOD 12/22/2024 10:[address] [facility] INR 1.1 LAB COAGULATION METHOD 12/22/2024 10:[address] [facility] Blood Venous blood specimen / Unknown Venipuncture / Unknown 12/22/2024 9:48 AM EDT 12/22/2024 9:59 AM EDT us Prosper Pugh MD LAB BLOOD ORDERABLES Final Resul t [facility] [address] [place] [address], [place] [phone] * D-dimer, quantitative (12/22/2024 9:48 AM EDT) [facility] D-Dimer, Quant (D-DU) <150 <=230 ng/mL DDU LAB COAGULATION METHOD 12/22/2024 3:[address] [facility] Blood Venous blood specimen / Unknown Venipuncture / Unknown 12/22/2024 9:48 AM EDT 12/22/2024 9:[address] [facility] - 12/22/2024 3:59 PM EDT D-Dimer <230 ng/mL (D-Dimer units) is the threshold for exclusion of DVT/PE. D-Dimer may be elevated in: Critically ill, severely infected, trauma patients, DIC, acute CVA, acute CT, unstable angina, AF, old age, , and smoking. D-Dimer may be decreased with: Initiation of heparin therapy and oral anticoagulants. us Waqar Casarez MD LAB BLOOD ORDERABLES Final Res ult Performing Organization Address [facility] [address] [facility] Co de Phone Number [facility] [address] [place] [address], * B-Type Natriuretic Peptide (BNP) (12/22/2024 9:48 AM EDT) BNP 8 <=100 pcg/mL LAB CHEMISTRY METHOD 12/22/2024 10:[address] [facility] Blood Venous blood specimen / Unknown Venipuncture / Unknown 12/22/2024 9:48 AM EDT 12/22/2024 9:59 AM EDT us Prosper Pugh MD LAB BLOOD ORDERABLES Final Resul t Performing Organization Address [facility] [address]/ZIP Co de Phone Number [facility] [address] [place] [address], [place] [phone] * Magnesium (12/22/2024 9:48 AM EDT) Magnesium 2.0 1.9 - 2.6 mg/dL LAB CHEMISTRY METHOD 12/22/2024 10:[address] [facility] Blood Venous blood specimen / Unknown Venipuncture / Unknown 12/22/2024 9:48 AM EDT 12/22/2024 9:59 AM EDT us Prosper Pugh MD LAB BLOOD ORDERABLES Final Resul t Performing Organization Address City/[facility] [address]/ZIP Co de Phone Number [facility] [address] [place] [address], [place] [phone] * Lactate (12/22/2024 9:48 AM EDT) Lactate 1.5 0.4 - 2.0 mmol/L LAB CHEMISTRY METHOD 12/22/2024 10:[address] [facility] Blood Venous blood specimen / Unknown Venipuncture / Unknown 12/22/2024 9:48 AM EDT 12/22/2024 9:59 AM EDT us Prosper Pugh MD LAB BLOOD ORDERABLES Final Resul t Performing Organization Address [facility] [address]/[facility] Co de Phone Number [facility] [address] [place] [address], [place] [phone] * XR Chest 1 View (12/22/2024 9:20 AM EDT) Anatomical Region Laterality Modality Body Radiographic Lisseth ging 12/22/2024 9:40 AM EDT Impressions 12/22/2024 9:40 AM EDT Impression: No active pulmonary process identified. No significant change. Teleronni LEVY ([id number]) -------- FINAL REPORT -------- Dictated By: Alyssa Lee Dictated Date: 12/22/2024 09:40 ET Assigned Physician: Alyssa Lee Reviewed and Electronically Signed By: Alyssa Lee Signed Date: 12/22/2024 09:40 ET Workstation ID: [id number] Transcribed By: Self Edit Transcribed Date: 12/22/2024 09:40 ET Narrative 12/22/2024 9:40 AM EDT History: Epigastric pain. Vomiting. Comparison: 07/26/18 Findings: Portable AP upright chest at 9:17 AM. The cardiac silhouette remains normal in size. Hilar contours and pulmonary vascularity are normal. The lungs are grossly clear. The costophrenic angles are sharp. Procedure Note Alyssa Lee MD - 12/22/2024 History: Epigastric pain. Vomiting. Comparison: 07/26/18 Findings: Portable AP upright chest at 9:17 AM. The cardiac silhouette remainsnormal in size. Hilar contours and pulmonary vascularity are normal. Thelungs are grossly clear. The costophrenic angles are sharp. IMPRESSION: Impression: No active pulmonary process identified. No significant change. Telerad PA ([id number]) -------- FINAL REPORT -------- Dictated By: Alyssa Lee Dictated Date: 12/22/2024 09:40 ET Assigned Physician: Alyssa Lee Reviewed and Electronically Signed By: Alyssa Lee Signed Date: 12/22/2024 09:40 ET Workstation ID: [id number] Transcribed By: Self Edit Transcribed Date: 12/22/2024 09:40 ET Prosper Pugh MD IMG XR PROCEDURES Final Result * (ABNORMAL) CBC auto differential (12/22/2024 8:33 AM EDT) [facility] WBC 8.5 4.8 - 10.8 K/mcL LAB HEMETOLOGY METHOD [facility] RBC 5.30(H) 3.80 - 4.80 M/mcL LAB HEMETOLOGY METHOD 12/22/2024 10:[address] [facility] Hemoglobin 14.1 11.5 - 16.0 g/dL LAB HEMETOLOGY METHOD 12/22/2024 10:00 AM [facility] Hematocrit 42.7 35.0 - 47.0 % LAB HEMETOLOGY METHOD 12/22/2024 10:00 AM [facility] MCV 80.6 79.0 - 98.0 FL LAB HEMETOLOGY METHOD 12/22/2024 10:00 AM [facility] MCH 26.6(L) 27.0 - 32.0 pcg LAB HEMETOLOGY METHOD 12/22/2024 10:00 AM [facility] MCHC 33.0 32.0 - 37.0 g/dL LAB HEMETOLOGY METHOD 12/22/2024 10:00 AM [facility] RDW 12.8 11.0 - 15.0 % LAB HEMETOLOGY METHOD 12/22/2024 10:00 AM [facility] Platelets 324 130 - 400 K/mcL LAB HEMETOLOGY METHOD 12/22/2024 10:00 AM [facility] MPV 9.6 7.0 - 11.0 FL LAB HEMETOLOGY METHOD 12/22/2024 10:00 AM [facility] NRBC 0.0 <1.0 % LAB HEMETOLOGY METHOD 12/22/2024 10:00 AM [facility] NRBC Absolute 0.00 <0.10 K/mcL LAB HEMETOLOGY METHOD 12/22/2024 10:00 AM [facility] Neutrophils Relative 77.1 % LAB HEMETOLOGY METHOD 12/22/2024 10:00 AM [facility] Lymphocytes Relative 15.8 % LAB HEMETOLOGY METHOD 12/22/2024 10:00 AM [facility] Monocytes Relative 6.2 % LAB HEMETOLOGY METHOD 12/22/2024 10:00 AM [facility] Eosinophils Relative 0.1 % LAB HEMETOLOGY METHOD 12/22/2024 10:00 AM [facility] Basophils Relative 0.4 % LAB HEMETOLOGY METHOD 12/22/2024 10:00 AM [facility] Immature Granulocytes Relative 0.4 % LAB HEMETOLOGY METHOD 12/22/2024 10:[address] [facility] Neutrophils Absolute 6.58 1.50 - 7.00 K/mcL LAB HEMETOLOGY METHOD 12/22/2024 10:[address] [facility] Lymphocytes Absolute 1.35 1.00 - 5.00 K/mcL LAB HEMETOLOGY METHOD 12/22/2024 10:[address] [facility] Monocytes Absolute 0.53 0.20 - 1.00 K/[facility] HEMETOLOGY METHOD 12/22/2024 10:[address] [facility] Eosinophils Absolute 0.01 0.00 - 0.50 K/[facility] HEMETOLOGY METHOD 12/22/2024 10:[address] [facility] Basophils Absolute 0.03 0.00 - 0.20 K/mcL LAB HEMETOLOGY METHOD 12/22/2024 10:[address] [facility] Immature Granulocytes Absolute 0.03 0.00 - 0.03 K/[facility] HEMETOLOGY METHOD 12/22/2024 10:[address] [facility] Blood Venous blood specimen / Unknown Venipuncture / Unknown 12/22/2024 8:33 AM EDT 12/22/2024 9:51 AM EDT us Jean Lake MD LAB BLOOD ORDERABLES Final Resu lt [facility] [address] [place] [address], * Lipase (12/22/2024 8:33 AM EDT) Lipase 31 13 - 75 unit/L LAB CHEMISTRY METHOD 12/22/2024 10:[address] [facility] Blood Venous blood specimen / Unknown Venipuncture / Unknown 12/22/2024 8:33 AM EDT 12/22/2024 9:51 AM EDT us Jean Lake MD LAB BLOOD ORDERABLES Final Resu lt [facility] [address] [place] [address], [place] [phone] * (ABNORMAL) Comprehensive Metabolic Panel (CMP) (12/22/2024 8:33 AM EDT) Sodium 137 133 - 145 mmol/L LAB CHEMISTRY METHOD 12/22/2024 10:30 AM [facility] Potassium 3.6 3.5 - 5.5 mmol/L LAB CHEMISTRY METHOD 12/22/2024 10:30 AM [facility] Chloride 103 96 - 110 mmol/L LAB CHEMISTRY METHOD 12/22/2024 10:30 AM [facility] CO2 24 21 - 32 mmol/L LAB CHEMISTRY METHOD 12/22/2024 10:30 AM [facility] Anion Gap 10 3 - 11 LAB CHEMISTRY METHOD 12/22/2024 10:30 AM [facility] Glucose 79 70 - 100 mg/dL LAB CHEMISTRY METHOD 12/22/2024 10:30 AM [facility] BUN 14 5 - 25 mg/dL LAB CHEMISTRY METHOD 12/22/2024 10:30 AM [facility] Creatinine 0.65 0.50 - 1.10 mg/dL LAB CHEMISTRY METHOD 12/22/2024 10:30 AM [facility] eGFR 104 >=60 mL/min/1. 73m2 LAB CHEMISTRY METHOD 12/22/2024 10:30 AM [facility] Comment:Calculation based on the Chronic Kidney Disease Epidemiology Collaboration (CKD-EPI) equation refit without adjustment for race. BUN/Creatinine Ratio 21.5 LAB CHEMISTRY METHOD 12/22/2024 10:30 AM [facility] Calcium 10.0 8.5 - 10.5 mg/dL LAB CHEMISTRY METHOD 12/22/2024 10:[address] [facility] AST (SGOT) 16 10 - 42 unit/L LAB CHEMISTRY METHOD 12/22/2024 10:30 AM [facility] ALT (SGPT) 27 10 - 60 unit/L LAB CHEMISTRY METHOD 12/22/2024 10:30 AM [facility] Alkaline Phosphatase 79 42 - 121 unit/L LAB CHEMISTRY METHOD 12/22/2024 10:30 AM [facility] Total Protein 7.3 6.0 - 8.0 g/dL LAB CHEMISTRY METHOD 12/22/2024 10:30 AM [facility] Albumin 3.9 3.2 - 5.0 g/dL LAB CHEMISTRY METHOD 12/22/2024 10:30 AM [facility] Total Bilirubin 1.6(H) 0.0 - 1.4 mg/dL LAB CHEMISTRY METHOD 12/22/2024 10:30 AM [facility] Blood Venous blood specimen / Unknown Venipuncture / Unknown 12/22/2024 8:33 AM EDT 12/22/2024 9:51 AM EDT Jean Lake MD LAB BLOOD ORDERABLES Final Resu lt [facility] [address] [place] [address], from Last 3 Months Additional Health Concerns Active Problems Noted Date Diagnosed Date Autogenerated Problem 02/10/2025 Insurance MEDICAID - [place] Advance Directives * Full Code - Confirmed (Latest Code Status on File) Date Activated Date Inactivated Comments 12/22/2024 7:17 PM 12/23/2024 5:[address] [facility] was ascertained in the following way: Code status discussion: discussion with patient To update the patient's code status, place a code status order. Do not modify or discontinue any currently active code status orders. * Full Code - Default Date Activated Date Inactivated Comments 12/22/2024 3:25 PM 12/22/2024 7:17 PM This is orde r is used when code status has not been discussed with the patient, or code status is otherwise unknown/unconfirmed To update the patient's code status, place a code status order. Do not modify or discontinue any currently active code status orders.
--- OUTSIDE RECORDS SUMMARY | 2025-02-25 12:03 | XMS_ITS | Encounter Summary ---
Author Organization [employer] Address [address] [place] [address] [address] [place] [address] Care Team Providers Care Curing Pickling Packer Name Role Phone Laila De Los Santos MD Primary Care Pro vider Clarisse Stinson DDS Unavailable [phone] Reason for Visit * Reason Comments Med Refill Encounter Details Date Type Department Care Team ([facility] st Contact Info) Description 01/19/2025 Refill [facility] [address] [place], [place] [phone] Mc Lo MD [address] [place], [place] [phone] Social History Tobacco Use Types Packs/Day Years [...] Description 03/04/2025 10:00 AM EDT Office Visit [facility] [address] [place] [address] Laila De Los Santos MD [address] [place] [phone] documented as of this encounter Visit Diagnoses Not on filedocumented in this encounter Additional Health Concerns Assessment Noted Time PHQ-9 Depression Total Score: 2 12/27/19 2:00 PM EDT documented as of this encounter Care Teams Curing Pickling Packer Relationship Specialty Start Date End Date Laila De Los Santos MD [address] [place] [phone] PCP - General Internal Medicine 09/26/23 Clarisse Stinson DDS [address] [place] [address] [phone] [facility] [place] [employer] 07/31/24 documented as of this encounter
--- OUTSIDE RECORDS SUMMARY | 2025-02-25 12:03 | XMS_ITS | Clinical Summary ---
Author Organization [facility] Address [address] [place] [address] [address] [place] [address] Care Team Providers Care Track Inspector Name Role Phone Laila De Los Santos MD Primary Care Pro vider Clarisse Stinson DDS Unavailable [phone] Allergies No known active allergies Medications Acetaminophen Extra Strength 500 MG tablet Take 1 tablet by mouth every 4 (four) hours if needed. 03/18/20 23 Active Blood Pressure Monitor kit 1 Device Once per day. 1 kit 09/14/19 24 Active estradiol (Vivelle-DOT) 0.075 MG/24HR Place 1 patch on the skin 2 (two) times a week. Active losartan (Cozaar) 25 MG tablet TAKE 1 TABLET BY MOUTH EVERY DAY 90 tablet 1 10/14/19 25 Active famotidine (Pepcid) 20 MG tablet Take 20 mg by mouth 2 times daily. 12/24/19 25 Active metoclopramide (Reglan) 5 MG tablet Take 5 mg by mouth if needed in the morning, at noon, in the evening, and at bedtime. 12/24/19 25 Active Melatonin 10 MG chewable tablet Chew. Active Zepbound 10 MG/0.5ML solution auto-injector ADMINISTER 10 MG UNDER THE SKIN 1 TIME EVERY WEEK 2 mL 1 02/25/20 25 Active Tirzepatide-We ight Management (Zepbound) 10 MG/0.5ML solution auto-injector Inject 0.5 mL (10 mg) under the skin 1 (one) time per week. 2 mL 1 12/27/19 25 025 Discontinued Active Problems Problem Noted Date Diagnosed Date Nevus 12/27/2024 Calculus of gallbladder with out cholecystitis without obstruction 12/23/2024 Nausea and vomiting 12/23/2024 Abdominal pain 12/22/2024 Dense breast tissue 05/22/2024 Assessment & Plan (05/22/2024 11:42 AM EST): Bilateral, lateral breast tenderness, intermittently x1 month. Given breast tenderness and fiber dense breast found on mammogram 03/2024, as well as FHx of sister having ovarian CA will refer to [facility]. Will call [facility] to get US of breasts ordered by PCP, Dr. Patterson. -referred to [facility] 05/22/24 Breast tenderness in female 05/22/2024 Assessment & Plan (05/22/2024 11:41 AM EST): Bilateral, lateral breast tenderness, intermittently x1 month. Given breast tenderness and fiber dense breast found on mammogram 03/2024, as well as FHx of sister having ovarian CA will refer to [facility]. Will call [facility] to get US of breasts ordered by PCP, Dr. Patterson. -referred to [facility] 05/22/24 FH: ovarian cancer 05/22/2024 Assessment & Plan (05/22/2024 11:43 AM EST): Bilateral, lateral breast tenderness, intermittently x1 month. Given breast tenderness and fiber dense breast found on mammogram 03/2024, as well as FHx of sister having ovarian CA will refer to [facility]. Will call [facility] to get US of breasts ordered by PCP, Dr. Patterson. -referred to [facility] 05/22/24 Retained dental root 04/14/2024 Prediabetes 10/18/2023 HTN (hypertension) 10/18/2023 Class 2 obesity 09/14/2023 Health care maintenance 09/14/2023 Resolved Problems Problem Noted Date Diagnosed Date Resolved Date Female bladder prolapse 09/14/2023 112 Open wound 09/14/2023 04/02/2024 Elevated blood pressure reading 09/14/2023 10/18/2023 Uterine myoma 06/08/2023 04/02/2024 Encounters Date Type Department Care Team Description 02/23/2025 Refill [facility] [address] [facility] [place] [address] Laila De Los Santos MD 01/24/2025 Refill [facility] MED[facility] [address] [facility] [place] [address] Laila De Los Santos MD 01/19/2025 Refill [facility] [address] [facility] [place] [address] Mc Lo MD 01/15/2025 8:30 AM EDT Office Visit [facility]ULT [facility]AL [address] [facility] [place] [address] Clarisse Stinson DDS Dental caries (Primary Dx); Symptomatic irreversible pulpitis 12/26/2024 1:45 PM EDT Office Visit [facility] [place] [address] Laila De Los Santos MD Nevus (Primary Dx); Annual physical exam; Hypertension, unspecified type; Class 2 obesity; Health care maintenance; FH: ovarian cancer 12/26/2024 Travel 12/25/2024 Telephone [facility] [place] [address] Laila De Los Santos MD chart prep 12/25/2024 Travel 12/19/2024 Patient Outreach [facility] [place] [address] Laila De Los Santos MD Pre-visit Planning (LVM ) 12/18/2024 Telephone [facility]ULT [facility]AL [address] [facility] [place] [address] Clarisse Stinson, DDS 12/08/2024 Telephone [facility] MEDICINE [address] [place] [address] Laila De Los Santos MD Med Refill 12/05/2024 Orders Only [facility] MEDICINE [address] [place] [address] Laila De Los Santos MD 12/05/2024 Refill [facility] MEDICINE [address] [place] [address] Laila De Los Santos MD from Last 3 Months Immunizations Immunization Administration Dates Next Due Influenza, seasonal, injectable, preservative fr ee 04/02/2024 Pfizer Covid-19 Vaccine 12+ 04/02/2024, Tdap 05/23/2023 Family History Medical History Relation Name Comments Stroke Father breast ca-55 y of age ??? Mother Ovarian cancer Sister Relation Name Status Comments Father Mother Sister Social History Tobacco Use Types Packs/Day Years Used Date Smoking Tobacco: Never Passive Smoke Exposure: Never Smokeless Tobacco: Never Tobacco Cessation:Counseling Given: Not Answered Alcohol Use Standard Drinks/Week Comments Never 0 [...] Orientation Straight 12/20/2022 8: 16 AM EDT Last Filed Vital Signs Vital Sign Reading Time Taken Comments Blood Pressure 120/78 01/15/2025 8:42 AM EDT Pulse 85 12/26/2024 1:59 PM EDT Temperature 36.3 C (97.3 F) 12/26/2024 1:59 PM EDT Respiratory Rate 20 12/26/2024 1:59 PM EDT Oxygen Saturation 97% 12/26/2024 1:59 PM EDT Inhaled Oxygen Concentration - - Weight 77.4 kg (170 lb 9.6 oz) 12/26/2024 1:59 P M EDT Height 154.9 cm (5' 1 ) 12/26/2024 1:59 PM EDT Body Mass Index 32.23 12/26/2024 1:59 PM EDT Plan of Treatment Upcoming Encounters Date Type Department Care Team (Late st Contact Info) Description 03/04/2025 10:00 AM EDT Office Visit [facility] MEDICINE [address] [place] [address] Laila De Los Santos MD [address] [place] [address] Health Maintenance Due Date Last Done Comments CT Colonography 1969 Dental Prophylaxis 1969 FIT DNA/Cologuard 1969 FIT 1969 FOBT 1969 Sigmoidoscopy 1969 Hepatitis B Vaccines (1 of 3 - 19+ 3-dose series) 1988 Pap Smear 1990 Cervical Cancer Screening 11/17/1999 HPV/Cotest 11/17/1999 Pneumococcal Vaccine: 50+ Years (1 of 1 - PCV) 11/17/2019 Zoster Vaccines (1 of 2) 11/17/2019 Influenza Vaccine (#1) 2025 04/02/2024 Dental Oral Exam 02/09/2025 08/08/2024 Diabetes: Hemoglobin A1C 04/07/202502/25/ 025, 04/07/2024, 10/01/2023 SDOH Screening 08/05/2025 08/05/2024 Dental X-Ray: Bitewings 08/09/2025 08/08/2024 Disability Screening 08/14/2025 08/14/2024 Alcohol/Substance Use Screening 12/26/2025 12/26/2024 Depression Screening 12/26/2025 12/26/2024, 12/27/19 Tobacco Screening 01/15/2026 01/15/2025 Mammogram 01/28/2026 01/29/2024 Dental X-Ray: Full Mouth 08/10/2027 08/08/2024 Lipid Panel 04/07/2029 04/07/2024, 10/01/2023 Colonoscopy 04/17/2029 04/17/2024 Colorectal Cancer Screening 04/17/2029 DTaP/Tdap/Td Vaccines (2 - Td or Tdap) 05/23/2033 05/23/2023 RSV Patients and Patients Aged 60 years or older (1 - 1-dose 75+ series) 2044 HIV [...] patient's age to complete this topic Meningococcal Vaccine Aged Out No andrade richard eligible based on patient's age to complete this topic RSV under 20 months Aged Out No longe r eligible based on patient's age to complete this topic Rotavirus Vaccines Aged Out No longer eligible based on patient's age to complete this topic Procedures Procedure Name Priority Date/Time Associated Diagnosis Comments HEMOGLOBIN A1C Routine 02/25/2025 10:18 AM EDT Annual physical exam CBC Routine 02/25/2025 10:18 AM EDT Annual physical exam ALBUMIN, RANDOM URINE W/CREATININE Routine 02/25/2025 10:18 AM EDT Annual physical exam CASE PRESENTATION, DETAILED AND EXTENSIVE TREATMENT PLANNING Routine 01/15/2025 8:30 AM EDT Dental caries Symptomatic irreversible pulpitis 10 ENDODONTIC THERAPY, ANTERIOR TOOTH Routine 01/15/2025 8:30 AM EDT Dental caries Symptomatic irreversible pulpitis INTRAORAL - COMPLETE SERIES OF RADIOGRAPHIC IMAGES Routine 08/08/2024 10:30 AM EDT COMPREHENSIVE ORAL EVALUATION - NEW OR ESTABLISHED PATIENT Routine 08/08/2024 10:30 AM EDT HM COLONOSCOPY Routine 04/17/2024 2:02 PM EST LIPID PANEL, STANDARD Routine 04/07/2024 8:50 AM EST Prediabetes BI MAMMOGRAM SCREENING TOMOSYNTHESIS BILATERAL Routine 01/29/2024 Breast cancer screening by mammogram HEPATITIS C AB W/REFL TO HCV RNA, QN, PCR Routine 10/01/2023 9:34 AM EDT Annual physical exam HIV 1/2 ANTIGEN/ANTIBODY, FOURTH GENERATION W/RFL Routine 10/01/2023 9:34 AM EDT Annual physical exam from Last 3 Months or Most Recently Relevant to Health Maintenance Results * Albumin, Random Urine W/Creatinine (02/25/2025 10:18 AM EDT) Creatinine, Urine 283.43 mg/dL [facility] Microalbumin Urine 12.0 mg/L [facility] Microalbum Creatinine Ratio Ur 4.2 <30 ug/mg cr [facility] Comment:Albumin/Creatinine R atio Reference Ranges: Normal: < 30 ug/mg creatinine Microalbuminuria: 30 - 300 ug/mg creatinineClinical Albuminuria: > 300 ug/mg creatinine Urine (Urine, Random) 02/25/2025 10:18 AM EDT 02/25/2025 11:03 AM EDT us Laila Smith MD LAB URINE ORDERAB LES Final Result [facility] [address] [place] [phone] * CBC (02/25/2025 10:18 AM EDT) White Blood Count 6.8 4.8 - 10.8 X10*3/uL [facility] Red Blood Count 5.11 4.20 - 5.50 X10*6/uL [facility] Hemoglobin 13.8 12.0 - 16.0 g/dl [facility] Hematocrit 42.2 37.0 - 47.0 % [facility] Mean Corpuscular Volume 82.6 80.0 - 98.0 fL [facility] Mean Corpuscular Hemoglobin 27.0 27.0 - 33.0 pg [facility] Mean Corpuscular HGB Conc 32.7 31.0 - 35.0 g/dl [facility] Red Cell Distribution Width 13.0 11.0 - 16.0 % [facility] Platelet Count 298 160 - 400 X10*3/uL [facility] Mean Platelet Volume 9.4 9.4 - 12.3 fL [facility] NRBC Pct Auto 0.0 0.0 - 0.2 /100WBC [facility] NRBC Abs Auto 0.000 0.0 - 0.012 X10*3/uL [facility] Blood Venous blood specimen / Unknown 02/25/2025 10:18 AM EDT 02/25/2025 11:14 AM EDT us Laila Smith MD LAB BLOOD ORDERAB LES Final Result [facility] [address] [place] [phone] * Hemoglobin A1c (02/25/2025 10:18 AM EDT) Hemoglobin A1c 5.1 <6.0 % [facility] Comment:Hemoglobin A1C Refer ence Range Adults: 4.8 - 6.0 % Non diabetic: < 6.0 % Goal: < 7.0 %Additional Action Suggested: > 8.0 %Note: Hemoglobin A1c results are invalid for patients with abnormal amounts of HbF. Blood transfusions may impact the HbA1c concentration in the patient sample. Estimated Average Glucose 100 mg/dL [facility] Comment:eAG = Estimated ave rage glucose which is %A1C expressed asaverage glucose, using the formula of the D6M-XqusfddBniaqzs Glucose study (ADAG), Diabetes Care, Vol.31,#8,Dec. 2007 Blood Venous blood specimen / Unknown 02/25/2025 10:18 AM EDT 02/25/2025 11:14 AM EDT Laila Smith MD LAB BLOOD ORDERAB LES Final Result [facility] [address] [place] [phone] * Hm Colonoscopy (04/17/2024 2:02 PM EST) Historical Provider HEALTH MAINTENANCE Final Result * (ABNORMAL) Lipid Panel, Standard (04/07/2024 8:50 AM EST) Triglycerides 90 <150 mg/dL [facility] Comment:Desirable Triglyceri de: less than 150 mg/dLBorderline High Triglyceride 150-199 mg/dLHigh Triglyceride: 200-499 mg/dLVery High Triglyceride: greater than or equal to 5OO mg/dL Cholesterol 173 <200 mg/dL [facility] Comment:Desirable Cholestero l: less than 200 mg/dLBorderline High Cholesterol: 200-239 mg/dLHigh Cholesterol: greater than 239 mg/dL LDL Cholesterol Calculated 106(H) <100 mg/dL [facility] Comment:Desirable LDL: less than 100 mg/dLNear Optimal/Above Optimal LDL: 110- 129 mg/dLBorderline High LDL: 130-159 mg/dLHigh LDL: 160-189 mg/dLVery High LDL: greater than or equal to 190 mg/dL HDL Cholesterol 49 >40 mg/dL [facility] Comment:Desirable HDL: great er than 40 mg/dL Note: This HDL assay may give artificially low results in patients with liver disease. Blood Venous blood specimen / Unknown 04/07/2024 8:50 AM EST 04/07/2024 11:17 AM EST Laila Smith MD LAB BLOOD ORDERAB LES Final Result Performing Organization Address [facility] Co de Phone Number [facility] [address] [place] [address] [phone] * BI Mammogram Screening Tomosynthesis Bilateral (01/29/2024) Anatomical Region Laterality Modality Breast Bilateral Mammography Laila Smith MD IMG BI PROCEDURES Final Result * Hepatitis C Antibody with Reflex to HCV, RNA, Quantitative, Real-Time PCR (10/01/2023 9:34 AM EDT) Hepatitis C Antibody Nonreactive Nonreactive [facility] Comment:Antibodies to HCV no t detected; does not exclude early acuteHCV infection. Blood Venous blood specimen / Unknown 10/01/2023 9:34 AM EDT 10/01/2023 11:19 AM EDT Laila Smith MD LAB BLOOD ORDERAB LES Final Result Performing Organization Address [facility] Co de Phone Number [facility] [address] [place] [phone] [phone] * HIV-1/2 Antigen and Antibodies, Fourth Generation, with Reflexes (10/01/2023 9:34 AM EDT) HIV AB/AG Nonreactive Nonreactive [facility] Comment:HIV-1 p24 Ag and/or HIV-1/HIV-2 Ab not detected.A test result that is nonreactive does not exclude thepossibility of exposure to or infection with HIV-1 and/orHIV-2. Nonreactive results in this assay for individualswith prior exposure to HIV-1 and/or HIV-2 may be due toantigen and antibody levels that are below the limit ofdetection of this assay.The Bantam Live HIV Ag/Ab Combo assay result andsupplemental assay results should be interpreted inconjunction with the patient's clinical presentation,history and other laboratory results. If the results areinconsistent with clinical evidence, additional testing issuggested to confirm the result. Blood Venous blood specimen / Unknown 10/01/2023 9:34 AM EDT 10/01/2023 11:19 AM EDT us Laila Smith MD LAB BLOOD ORDERAB LES Final Result [facility] [address] [place] [phone] [phone] from Last 3 Months or Most Recently Relevant to Health Maintenance [place] [address] [address] [place] [address] C[facility] MEDICAID STAND ADULT Care Teams Track Inspector Relationship Specialty Start Date End Date Laila De Los Santos MD [address] [place] [address] PCP - General Internal Medicine 09/26/23 Clarisse Stinson DDS [address] [place] [id number] Dental Linux Unix Administrator 07/31/24
--- OUTSIDE RECORDS SUMMARY | 2025-02-25 12:03 | XMS_ITS | Encounter Summary ---
Author Organization [facility] Address [address] [place] [address] 7 [place] [address] Care Team Providers Care Ophthalmology Assistant Name Role Phone Laila De Los Santos MD Primary Care Pro vider Clarisse Stinson DDS Unavailable [phone] Reason for Visit * Reason Onset Date Comments New Patient 12/27/2022 Encounter Details Date Type Department Care Team (Late st Contact Info) Description 12/27/2022 Telephone [facility] MEDICINE [address] [place], [place] [phone] Mc Lo MD [address] [place], [place] [phone] New Patient Social History Tobacco Use Types Packs/Day Years Used Date Smoking Tobacco: Never Assessed Comments Unknown Sex and Gender Information Value Date Recorded Sex Assigned at Female 12/20/2022 8:16 AM EDT Legal Sex Female 8:10 AM EDT Gender Identity Female 12/20/2022 8:16 AM EDT Sexual Orientation Straight 12/20/2022 8: 16 AM EDT documented as of this encounter Miscellaneous Notes * Telephone Encounter - Palmira Sloan - 12/27/2022 4:47 PM EDT 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 EFFECTIVE SINCE 12/27/2022 documented in this encounter Plan of Treatment Upcoming Encounters Date Type Department Care Team (Late st Contact Info) Description 03/04/2025 10:00 AM EDT Office Visit [facility] MEDICINE [address] [place], [place] [phone] Laila De Los Santos MD [address] [place], [place] [phone] documented as of this encounter Visit Diagnoses Not on filedocumented in this encounter Care Teams Ophthalmology Assistant Relationship Specialty Start Date End Date Laila De Los Santos MD [address] [place] [address] [phone] PCP - General Internal Medicine 09/26/23 Clarisse Stinson DDS [address] [place] [address] [phone] Dental Patternmaker Wood 07/31/24 documented as of this encounter
--- OUTSIDE RECORDS SUMMARY | 2025-02-25 12:03 | XMS_ITS | Encounter Summary ---
Author Organization [employer] Address [address] [place] [address] [address] [place] [address] Care Team Providers Care Medical Office Technology Instructor Name Role Phone Laila De Los Santos MD Primary Care Pro vider Clarisse Stinson DDS Unavailable [phone] Reason for Visit * Reason Comments Med Refill Encounter Details Date Type Department Care Team (Late st Contact Info) Description 01/24/2025 Refill [facility] MEDICINE [address] [place], [place] [phone] Laila De Los Santos MD [address] [place], [place] [phone] Social History Tobacco Use Types Packs/Day Years [...] Description 03/04/2025 10:00 AM EDT Office Visit [facility] MEDICINE [address] [place] [phone] Laila De Los Santos MD [address] [place] [phone] documented as of this encounter Visit Diagnoses Not on filedocumented in this encounter Additional Health Concerns Assessment Noted Time PHQ-9 Depression Total Score: 2 12/27/19 2:00 PM EDT documented as of this encounter Care Teams Medical Office Technology Instructor Relationship Specialty Start Date End Date Laila De Los Santos MD [address] [place] [phone] PCP - General Internal Medicine 09/26/23 Clarisse Stinson DDS [address] [place] [address] [phone] Dental Cashiers Supervisor 07/31/24 documented as of this encounter
[2025-02-25 12:12] LABS: Alanine Aminotransferase 18 U/L (0-31); Albumin Level 4.3 g/dL (3.5-5.0); Alkaline Phosphatase 62 U/L (39-117); Anion Gap 10 (12-20); Aspartate Amino Transferase 20 U/L (5-31); Blood Urea Nitrogen 9 mg/dL (9-16); Calcium 9.6 mg/dL (8.4-10.2); Carbon Dioxide 27 mmol/L (22-29); Chloride 107 mmol/L (96-108); Cholesterol 202 mg/dL (<200); Estimated Glomerular Filt Rate > 60; HDL Cholesterol 51 mg/dL (>40); Potassium 3.9 mmol/L (3.3-5.1); Sodium 140 mmol/L (135-145); Total Protein 7.2 g/dL (6.5-8.0); Triglycerides 83 mg/dL (<150)
[2025-02-25 12:34] LABS: CT PCR Urine NOT DETECTED (Not Detect.); NG PCR Urine NOT DETECTED (Not Detect.)
[2025-02-26 04:16] LABS: Syphilis Screen Nonreactive (Nonreactive)
[2025-02-26 05:06] LABS: HBsAGNum1 0.39 S/CO (0.00-0.99); HIV Num 1 0.07 S/CO (0.00-0.99); Hepatitis B Surface Antigen Negative (Negative); ~HepC Num1 0.08 S/CO (0.00-0.79); ~Hepatitis C Antibody Nonreactive (Nonreactive)
== END 2025-02-25 10:12 | disposition home or self-care (01) ==
LOC: HO.HHCL 10:11
PROVIDERS: PCP Student in an Organized Health Care Education/Training Program; Visit Provider Student in an Organized Health Care Education/Training Program
DX: Z00.00 Encounter for general adult medical examination without abnormal findings (principal); Z20.2 Contact with and (suspected) exposure to infections with a predominantly sexual mode of transmission; Z11.4 Encounter for screening for human immunodeficiency virus [HIV]; Z11.59 Encounter for screening for other viral diseases
CPT/HCPCS: 80053; 80061; 82043; 82248; 82306; 82570; 83036; 84443; 85027; 86780; 86803; 87340; 87389; 87491; 87591